=== PATIENT | male | born 1955 | race Caucasian/White ===

== ENCOUNTER 2018-08-13 06:43 | Inpatient (IN) ==
[2018-08-13] MEDS ORDERED: Acetaminophen 325 MG Tablet PO ONE (07:05)
--- NOTE | 2018-08-13 07:12 | ED ---
HPI General Chief Complaint: Altered Mental Status Stated Complaint: Change in mental status Time Seen by Provider: 08/13/18 07:04 Source: patient, EMS and RN notes reviewed Mode of arrival: EMS Limitations: physical limitation History of Present Illness HPI narrative: 62-year-old pedro was brought in by EMS from local shelter for altered mental status and confusion. [facility] staff noticed patient has altered mental status and confusion since this morning. No reported coughing congestion fever chills. Patient status post CVA with some aphasia reported. Patient denies any headache. Patient denies any neck pain. Patient denies any chest pain or shortness of breath. Patient denies abdominal pain. Patient denies any focal weakness or numbness to the extremity. Patient started post right BKA. MD complaint: Reports altered mental status and confusion Onset (ago): hour(s) Timing confirmed by: caregiver Severity: moderate Consistency of symptoms: constant Context: Reports unknown Associated symptoms: Reports denies other symptoms Related Data Home Medications Medication Instructions Recorded Confirmed aspirin [Aspir-81] 81 mg PO DAILY 08/13/18 08/13/18 meloxicam [Mobic] 15 mg PO DAILY 08/13/18 08/13/18 mirtazapine [Remeron] 7.5 mg PO DAILY 08/13/18 08/13/18 ondansetron HCl [Zofran] 4 mg PO Q8HR PRN 08/13/18 08/13/18 oxycodone 15 mg PO Q6HR PRN 08/13/18 08/13/18 polyethylene glycol 3350 [Miralax] 17 g PO DAILY 08/13/18 08/13/18 sennosides [Senokot] 2 tab PO BID PRN 08/13/18 08/13/18 Allergies Allergy/AdvReac Type Severity Reaction Status Date / Time No Known Allergies Allergy Verified 08/13/18 07:05 Review of Systems ROS: all other systems reviewed are negative PMFSH History History Provided By: Patient, Medical Record and Supervisor Graphite / EMT Medical History Medical History CVA (cerebral vascular accident) (Acute) Failure to thrive (Acute) History of left below knee amputation (Acute) Surgical History Surgical History Previous back surgery (Acute) Social History Social History Substance History: No History of Abuse Second Hand Smoke Exposure: No Smoking Status: Former smoker How Often Do You Have a Drink Containing Alcohol: Never Recent Travel in [facility] within the Last 8 Weeks: No Recent Out of Country Travel within the Last 8 Weeks: No Exam Narrative Exam Narrative: GENERAL: Well-nourished, well-developed patient. SKIN: Focused skin assessment warm/dry. HEAD: Normocephalic. EYES: No scleral icterus. No injection or drainage. NECK: Supple, trachea midline. No JVD or lymphadenopathy. CARDIOVASCULAR: Regular rate and rhythm without murmurs, gallops, or rubs. RESPIRATORY: Breath sounds equal bilaterally. No accessory muscle use. GASTROINTESTINAL: Abdomen soft, non-tender, nondistended. MUSCULOSKELETAL: No cyanosis, or edema. BACK: Nontender without obvious deformity. No CVA tenderness. Neurologic exam: Patient is awake and alert. Patient oriented to person and place. Patient moves all extremities well. No obvious focal neurologic deficit. Course Initial Documented Vital Signs Temperature 102.3 F H 08/13/18 06:53 Pulse Rate 150 H 08/13/18 06:53 Respiratory Rate 30 H 08/13/18 06:53 Blood Pressure 168/79 H 08/13/18 06:53 Pulse Oximetry 97 08/13/18 06:53 Last Documented Vital Signs Temperature 99.8 F H 08/13/18 08:03 Pulse Rate 150 H 08/13/18 08:03 Respiratory Rate 20 08/13/18 08:03 Blood Pressure 131/62 08/13/18 08:03 Pulse Oximetry 95 08/13/18 08:03 Medical Decision Making [facility] Narrative Medical decision making narrative: 62-year-old male with altered mental status, confusion, fever, tachycardia. Patient brought in by EMS from local shelter. Sepsis workup started. Normal saline solution 2 L IV bolus. Vancomycin 1 g IV. Zosyn 3.375 g IV. Medical Screen Exam Complete: Yes Emergency Medical Condition: Yes Differential Diagnosis Differential Diagnosis: Differential diagnosis including sepsis, pneumonia, UTI , dehydration, electrolyte imbalance, TIA, CVA. Lab Data Lab results reviewed: Yes I reviewed the patient's lab results. Result diagrams: 08/13/18 07:00 08/13/18 07:00 Lab Results 08/13/18 08/13/18 08/13/18 Range/Units 07:00 07:00 07:00 WBC 10.1 (4.0-11.0) th/mm3 RBC 4.35 L (4.50-5.90) mil/mm3 Hgb 12.9 L (13.0-17.0) gm/dL Hct 37.5 L (39.0-51.0) % MCV 86.0 (80.0-100.0) fL MCH 29.7 (27.0-34.0) pg MCHC 34.5 (32.0-36.0) % RDW 13.4 (11.6-17.2) % Plt Count 159 (150-450) th/mm3 MPV 8.1 (7.0-11.0) fL Neut % (Auto) 70.5 H (16.0-70.0) % Lymph % (Auto) 18.9 (9.0-44.0) % [place] % (Auto) 10.2 H (0.0-8.0) % Eos % (Auto) 0.3 (0.0-4.0) % Baso % (Auto) 0.1 (0.0-2.0) % Neut # (Auto) 7.1 (1.8-7.7) th/mm3 Lymph # (Auto) 1.9 (1.0-4.8) th/mm3 [place] # (Auto) 1.0 H (0.0-0.9) th/mm3 Eos # (Auto) 0.0 (0.0-0.4) th/mm3 Baso # (Auto) 0.0 (0.0-0.2) th/mm3 WBC Differential . Differential Comment Auto diff final PT 11.5 (9.8-11.6) sec INR 1.1 Ratio APTT 33.9 H (23.4-31.7) sec Sodium 133 L (136-145) meq/L Potassium 3.8 (3.5-5.1) meq/L Chloride 99 (98-107) meq/L Carbon Dioxide 27.4 (21.0-32.0) meq/L Anion Gap 7 (5-15) meq/L BUN 10 (7-18) mg/dL Creatinine 0.54 L (0.60-1.30) mg/dL Estimated GFR Greater than 89 (>89) mL/min Random Glucose 93 (74-106) mg/dL Lactic Acid (0.4-2.0) mmol/L Calcium 8.2 L (8.5-10.1) mg/dL Total Bilirubin 0.6 (0.2-1.0) mg/dL AST 28 (15-37) U/L ALT 25 (12-78) U/L Alkaline Phosphatase 67 (45-117) U/L Total Creatine Kinase 56 (39-308) U/L Total Protein 9.0 H (6.4-8.2) g/dL Albumin 3.4 (3.4-5.0) g/dL Urine Color (Yellw/Straw) Urine Clarity (Clear) Urine pH (5.0-8.5) Ur Specific [place] (1.002-1.035) Urine Protein (Neg-Trace) mg/dL Urine Glucose (UA) (Negative) mg/dL Urine Ketones (Negative) mg/dL Urine Occult Blood (Negative) Urine Nitrate (Negative) Urine Bilirubin (Negative) Urine Urobilinogen (Less than 2) mg/dL Ur Leukocyte Esterase (Negative) Urine RBC (0-3) /hpf Urine WBC (0-5) /hpf Urine Mucus (Occasional) /lpf Micro UA Comment Ur Microscopic Review Urine Culture Comments 08/13/18 08/13/18 Range/Units 07:00 07:24 WBC (4.0-11.0) th/mm3 RBC (4.50-5.90) mil/mm3 Hgb (13.0-17.0) gm/dL Hct (39.0-51.0) % MCV (80.0-100.0) fL MCH (27.0-34.0) pg MCHC (32.0-36.0) % RDW (11.6-17.2) % Plt Count (150-450) th/mm3 MPV (7.0-11.0) fL Neut % (Auto) (16.0-70.0) % Lymph % (Auto) (9.0-44.0) % [place] % (Auto) (0.0-8.0) % Eos % (Auto) (0.0-4.0) % Baso % (Auto) (0.0-2.0) % Neut # (Auto) (1.8-7.7) th/mm3 Lymph # (Auto) (1.0-4.8) th/mm3 [place] # (Auto) (0.0-0.9) th/mm3 Eos # (Auto) (0.0-0.4) th/mm3 Baso # (Auto) (0.0-0.2) th/mm3 WBC Differential Differential Comment PT (9.8-11.6) sec INR Ratio APTT (23.4-31.7) sec Sodium (136-145) meq/L Potassium (3.5-5.1) meq/L Chloride (98-107) meq/L Carbon Dioxide (21.0-32.0) meq/L Anion Gap (5-15) meq/L BUN (7-18) mg/dL Creatinine (0.60-1.30) mg/dL Estimated GFR (>89) mL/min Random Glucose (74-106) mg/dL Lactic Acid 1.2 (0.4-2.0) mmol/L Calcium (8.5-10.1) mg/dL Total Bilirubin (0.2-1.0) mg/dL AST (15-37) U/L ALT (12-78) U/L Alkaline Phosphatase (45-117) U/L Total Creatine Kinase (39-308) U/L Total Protein (6.4-8.2) g/dL Albumin (3.4-5.0) g/dL Urine Color Yellow (Yellw/Straw) Urine Clarity Clear (Clear) Urine pH 7.0 (5.0-8.5) Ur Specific [place] 1.011 (1.002-1.035) Urine Protein Negative (Neg-Trace) mg/dL Urine Glucose (UA) Negative (Negative) mg/dL Urine Ketones Negative (Negative) mg/dL Urine Occult Blood Small H (Negative) Urine Nitrate Negative (Negative) Urine Bilirubin Negative (Negative) Urine Urobilinogen 2.0 H (Less than 2) mg/dL Ur Leukocyte Esterase Negative (Negative) Urine RBC 3 (0-3) /hpf Urine WBC 2 (0-5) /hpf Urine Mucus Few H (Occasional) /lpf Micro UA Comment Culture not ind Ur Microscopic Review Not Reportable Urine Culture Comments Culture not ind Imaging Data Attestation: I personally reviewed and interpreted this imaging study as follows : Radiologist's impression: Chest X-Ray 08/13/18 07:05 CONCLUSION: Bibasilar densities greater left lower lobe could be atelectasis or infiltrates. Head CT 08/13/18 07:05 CONCLUSION: 1. Remote left parietal infarct. 2. No acute intracranial abnormality. . . Discharge Plan Discharge Disposition Patient Disposition: ED Admit(ED Internal Use Only) Discharge Details Diagnosis: Sepsis, Pneumonia Physicians Team ED Provider: Navin Barrera Rxs /Orders / Referrals /Forms Prescriptions: No Action sennosides [Senokot] 8.6 mg Tablet 2 tab PO BID PRN (Reason: Constipation) RF: 0 polyethylene glycol 3350 [Miralax] 17 gram Powder In Packet 17 g PO DAILY RF: 0 meloxicam [Mobic] 15 mg Tablet 15 mg PO DAILY RF: 0 ondansetron HCl [Zofran] 4 mg Tablet 4 mg PO Q8HR PRN (Reason: Nausea) RF: 0 aspirin [Aspir-81] 81 mg Tablet,Delayed Release (Dr/Ec) 81 mg PO DAILY RF: 0 oxycodone 15 mg Tablet 15 mg PO Q6HR PRN (Reason: Pain) RF: 0 mirtazapine [Remeron] 15 mg Tablet 7.5 mg PO DAILY RF: 0 Discharge Interventions Interventions: Vital Signs Last Done: 08/13/18 08:03 Status ED Status: With Doctor
[2018-08-13] MEDS: Sod Chloride 0.9% Inj 1,000 ML IV.SIG SCH ×2 (07:23→07:45)
[2018-08-13 07:26] LABS: Baso % (Auto) 0.1 % (0.0-2.0); Eos % (Auto) 0.3 % (0.0-4.0); Hematocrit 37.5 % (39.0-51.0); Hemoglobin 12.9 gm/dL (13.0-17.0); Lymph # (Auto) 1.9 th/mm3 (1.0-4.8); Lymph % (Auto) 18.9 % (9.0-44.0); Mean Corpuscular HGB Conc 34.5 % (32.0-36.0); Mean Corpuscular Hemoglobin 29.7 pg (27.0-34.0); Mean Platelet Volume 8.1 fL (7.0-11.0); Mono % (Auto) 10.2 % (0.0-8.0); Neut # (Auto) 7.1 th/mm3 (1.8-7.7); Neut % (Auto) 70.5 % (16.0-70.0); Platelet Count 159 th/mm3 (150-450); Red Blood Count 4.35 mil/mm3 (4.50-5.90); Red Cell Distribution Width 13.4 % (11.6-17.2); White Blood Count 10.1 th/mm3 (4.0-11.0)
--- NOTE | 2018-08-13 07:28 | XR ---
EXAM DATE: 08/13/2018 7:17 AM EST AGE/SEX: 62 years / Male INDICATIONS: Fever CLINICAL DATA: This is the patient's initial encounter. Patient reports that signs and symptoms have been present for 1 day and indicates a pain score of 0/10. MEDICAL/SURGICAL HISTORY: None. . Back surgery COMPARISON: No prior exams available for comparison. FINDINGS: A single AP view of the chest demonstrates bibasilar densities greater left lower lobe. Fusion rods s een posteriorly. Heart normal in size. The cardiomediastinal contours are unremarkable. Osseous stru ctures are intact. CONCLUSION: Bibasilar densities greater left lower lobe could be atelectasis or infiltrates. Electronically signed by: Evangelist Bartlett MD Board Certified Radiologist 08/13/2018 7:27 AM EST
[2018-08-13 07:36] LABS: Activated Partial Thrombo Time 33.9 sec (23.4-31.7); INR 1.1 Ratio; Prothrombin Time 11.5 sec (9.8-11.6)
[2018-08-13 07:47] LABS: Alanine Aminotransferase 25 U/L (12-78); Albumin 3.4 g/dL (3.4-5.0); Anion Gap 7 meq/L (5-15); Aspartate Aminotransferase 28 U/L (15-37); Blood Urea Nitrogen 10 mg/dL (7-18); Calcium 8.2 mg/dL (8.5-10.1); Carbon Dioxide 27.4 meq/L (21.0-32.0); Chloride 99 meq/L (98-107); Glomerular Filtration Rate Greater Than 89 mL/min (>89); Glucose,Random 93 mg/dL (74-106); Potassium 3.8 meq/L (3.5-5.1); Sodium 133 meq/L (136-145)
[2018-08-13 07:49] LABS: Alkaline Phosphatase 67 U/L (45-117); Creatine Kinase 56 U/L (39-308)
--- NOTE | 2018-08-13 07:57 | CT ---
EXAM DATE: 08/13/2018 7:52 AM EST AGE/SEX: 62 years / Male INDICATIONS: Altered Mental Status CLINICAL DATA: This is the patient's initial encounter. Patient reports that signs and symptoms have been present for 1 day and indicates a pain score of 0/10. MEDICAL/SURGICAL HISTORY: Cerebrovascular disease. . Left below knee amputation, Back surgery RADIATION DOSE: 64.63 CTDI (mGy) COMPARISON: No prior exams available for comparison. TECHNIQUE: CT of the head without contrast. Using automated exposure control and adjustment of the mA and/or kV according to patient size, radiation dose was kept as low as reasonably achievable to ob tain optimal diagnostic quality images. DICOM format image data is available electronically for revi ew and comparison. FINDINGS: Cerebrum: Area of encephalomalacia in the left parietal lobe most characteristic of old infarct. The ventricles are normal for age. No evidence of midline shift, mass lesion, hemorrhage or acute infar ction. No extraaxial fluid collections are seen. Posterior Fossa: The cerebellum and brainstem are intact. The 4th ventricle is midline. The cerebe llopontine angle is unremarkable. Extracranial: The visualized portion of the orbits is intact. Skull: The calvaria is intact. No evidence of skull fracture. CONCLUSION: 1. Remote left parietal infarct. 2. No acute intracranial abnormality. . . Electronically signed by: Evangelist Bartlett MD Board Certified Radiologist 08/13/2018 7:56 AM EST
[2018-08-13 08:05] LABS: Bilirubin,Urine Negative (Negative); Clarity,Urine Clear (Clear); Color,Urine Yellow (Yellw/Straw); Glucose,Urine (UA) Negative (Negative); Leukocyte Esterase,Urine Negative (Negative); Mucus,Urine Few /lpf (Occasional); Nitrite,Urine Negative (Negative); Specific Gravity,Urine 1.011 (1.002-1.035)
[2018-08-13] MEDS ORDERED: Vancomycin Inj 1,000 MG in Sodium Chlor 0.9% Inj 250 ML IV.SIG ONE (08:26)
[2018-08-13] MEDS ORDERED: Piperacil/Tazo 3.375 GM Premix 3.375 GM/50 ML PIGGYBACK IV.SIG ONE (08:26)
--- NOTE | 2018-08-13 09:00 | P.HPFP ---
History of Present Illness Primary Care Physician: Reinier Zelaya MD <ShandaAgustin Mahajan - 08/13/18 15:15> Chief Complaint: AMS, confusion <Ary Krause B - 08/13/18 08:59> History of Present Illness: 62-year-old male with history of CVA 1 year ago, with residual weakness of the right side and trouble word finding, and chronic back pain due to prior fall from height presents via EMS for reported altered mental status today per [facility]. Per LI, patient has been more confused in the past day. Patient has a history of trouble with word finding and is oriented only to self upon interview, resulting in limited history. When asked the year he stated it was 2015 and was unable to state the month, day a week, or that he is currently in the hospital in [place], [place], but also admits that he knows his answers "aren' t right" after giving them. Denies increased trouble finding words, or confusion. He states that he is living at "[facility]" assisting living facility and has been for the past 6 months. Patient states that "feels fine" right now while in the ED. He notes an 8-day history of productive cough of white, sometimes brown-tinged sputum, and intermittent fever and chills for the past 3-4 days. He also notes mild nausea but denies vomiting. He otherwise denies headache, nasal congestion, nasal discharge, sore throat, shortness of breath, trouble taking a deep breath, abdominal pain, diarrhea, dysuria or hematuria. Also admits to chronic constipation, last bowel movement 2 days ago, which is normal for him. He is unable to confirm the medications on his medication list except for oxycodone 15 mg, four times daily, which he is taking for chronic back pain after a fall from height, status post right lower extremity BKA and significant spinal surgery, with a surgical scar extending from lower cervical to lower lumbar spine. Past medical history: CVA 1 year ago, with residual weakness and trouble word finding. Chronic back pain. Surgical history: Cervical, thoracic, lumbar spine surgery. RLE BKA. Exploratory laparotomy. Social hx: Former smoker. Denies alcohol or other substance abuse. PCP: Recently changed, unsure of name Update 08/13/18 at 13:00 PM: Spoke to RNPenelope, at [facility]. Patient baseline normally alert and oriented x3, able to state his full name, the year and month, and that he is residing at [facility]. He has trouble with word finding and trouble saying what he means to following CVA 1 year ago, but he is normally able to communicate the correct words with effort. Per nursing staff, patient started acting abnormally a couple of days ago, but worsened this morning, apparently making whooping noises while watching the television for the past couple of days and unable to be reoriented. Started on Remeron on 08/09/18 for appetite stimulation, which is the only noted medication change noted. Nurse confirmed community code status of Full Code. <Jeffrey DelcidAry Patricia 08/13/18 13:16> - Diagnosis (1) Sepsis (2) Pneumonia (3) Altered mental status (4) Status post cerebrovascular accident (5) Chronic back pain greater than 3 months duration (6) Constipation (7) Nutrition, metabolism, and development symptoms (8) DVT prophylaxis <ZionAgustin ellis 08/13/18 15:15> (1) Sepsis (2) Pneumonia (3) Altered mental status (4) Status post cerebrovascular accident (5) Chronic back pain greater than 3 months duration (6) Constipation (7) Nutrition, metabolism, and development symptoms (8) DVT prophylaxis <Rekhaalexandra BhavinAry Gomez 08/13/18 13:04> Inpatient Certification: I certify that the inpatient services were ordered in accordance with Medicare regulations governing the order. This includes certification that hospital inpatient services are reasonable and necessary and in the case of services not specified as inpatient-only under 42 CFR 419.22(n), that they are appropriately provided as inpatient services in accordance to with the 2-midnight benchmark under 43 CFR 412.3(e) <ZionAgustin ellis 08/13/18 15:15> I certify that the inpatient services were ordered in accordance with Medicare regulations governing the order. This includes certification that hospital inpatient services are reasonable and necessary and in the case of services not specified as inpatient-only under 42 CFR 419.22(n), that they are appropriately provided as inpatient services in accordance to with the 2-midnight benchmark under 43 CFR 412.3(e) <Jeffrey DelcidAry Gomez 08/13/18 08:59> Review of Systems Constitutional: Reports chills, Reports fever(s), Reports weakness (chronic) < [address] 08/13/18 10:42> Eyes: Denies change in vision, Denies pain <[address] 08/13/18 10: 42> Ears, Nose, Mouth, and Throat: Denies difficulty swallowing, Denies headache(s) , Denies nasal congestion, Denies nasal discharge, Denies sinus pain, Denies sore throat <[address] 08/13/18 10:42> Cardiovascular: Denies chest pain, Denies radiating jaw, neck or arm pain < [address] 08/13/18 10:42> Respiratory: Reports cough, Denies coughing up blood, Denies pain on inspiration , Denies shortness of breath, Denies wheezing <[address] 08/13/18 10:42> Gastrointestinal: Reports constipation, Reports nausea, Denies difficulty swallowing, Denies loose stools, Denies vomiting <[address] 10:42> Musculoskeletal: Reports back pain (Chronic), Reports muscle weakness (Chronic due to prior CVA) <[address] 08/13/18 10:42> Neurologic: Reports confusion, Denies headache(s) <[address] 10:42> PMFSH - History History Provided By: Patient, Medical Record, Flaring Machine Operator / EMT <[place] [id number] [facility] 08/13/18 08:59> - Medical History Medical History: Medical History (Last Reviewed 08/13/18 @ 07:50 by Sintia Padron RN) CVA (cerebral vascular accident) Failure to thrive History of left below knee amputation <Agustin Land 08/13/18 15:15> Medical History (Last Reviewed 08/13/18 @ 07:50 by Sintia Padron RN) CVA (cerebral vascular accident) Failure to thrive History of left below knee amputation <[address] 08/13/18 08:59> - Surgical History Surgical History: Surgical History (Last Reviewed 08/13/18 @ 07:50 by Sintia Padron RN) Previous back surgery <Agustin Land 17/19 15:15> Surgical History (Last Reviewed 08/13/18 @ 07:50 by Sintia Padron RN) Previous back surgery <Ary Krause 08/13/18 08:59> - Tobacco History Second Hand Smoke Exposure: No <Ary Krause 08/13/18 08:59> Tobacco Use In Past 30 Days: No <Ary Krause 08/13/18 08:59> Smoking Status: Former smoker <Ary Krause 08/13/18 08:59> - Alcohol History How Often Do You Have a Drink Containing Alcohol: Never <Ary Krause 08/13/18 08:59> - Substance Use History Substance History: No History of Abuse <Ary Krause 08/13/18 08:59> - Travel History Recent Travel in the [facility] Within the Last 8 Weeks: No <Ary Krause 08:59> Recent Travel Out of the Country Within the Last 8 Weeks: No <Ary Krause 08/13/18 08:59> - Immunization History Tetanus Immunization: <5 Years <Ary Krause 08/13/18 08:59> Medications and Allergies Allergies Allergy/AdvReac Type Severity Reaction Status Date / Time No Known Allergies Allergy Verified 08/13/18 07:05 <Agustin Land Keyshawn 08/13/18 15:15> Home Medications Medication Instructions Recorded Confirmed Type aspirin [Aspir-81] 81 mg PO DAILY 08/13/18 08/13/18 History meloxicam [Mobic] 15 mg PO DAILY 08/13/18 08/13/18 History mirtazapine [Remeron] 7.5 mg PO DAILY 08/13/18 08/13/18 History ondansetron HCl [Zofran] 4 mg PO Q8HR PRN 08/13/18 08/13/18 History oxycodone 15 mg PO Q6HR PRN 08/13/18 08/13/18 History polyethylene glycol 3350 [Miralax] 17 g PO DAILY 08/13/18 08/13/18 History sennosides [Senokot] 2 tab PO BID PRN 08/13/18 08/13/18 History <Agustin Land K - 08/13/18 15:15> Active Medications: Active Medications Acetaminophen (Tylenol) 650 mg PO Q4H PRN PRN Reason: Temp > 100.4 Al Hydroxide/Mg Hydroxide (Milk Of Magnesia Liq) 30 ml PO Q12H PRN PRN Reason: Mild Constipation Aspirin (Ecotrin) 81 mg PO DAILY [facility] Last Admin: 08/13/18 13:16 Dose: 81 mg Bisacodyl (Dulcolax Supp) 10 mg RECTAL DAILY PRN PRN Reason: SEVERE CONSITIPATION Enoxaparin Sodium (Lovenox Inj) 40 mg SQ Q24H [facility] Sodium Chloride (Ns Inj) 1,000 mls @ 125 mls/hr IV.CONT .Q8H [facility] Last Admin: 08/13/18 09:23 Dose: 125 mls/hr Piperacillin/Tazobactam/Dextrose (Zosyn 4.5 Gm Premix) 4.5 gm in 100 mls @ 200 mls/hr IV.SIG Q6H [facility] Vancomycin HCl 1,250 mg/ (Sodium Chloride) 262.5 mls @ 250 mls/hr IV.SIG Q12H [facility] Lactulose (Lactulose Liq) 30 ml PO DAILY PRN PRN Reason: SEVERE CONSITIPATION Meloxicam (Mobic) 15 mg PO DAILY [facility] Last Admin: 08/13/18 13:16 Dose: 15 mg Mirtazapine (Remeron) 7.5 mg PO Q24HR [facility] Miscellaneous Information ([facility] Ordered Lab Info) 0 each OTHER ONCE ONE Stop: 08/15/18 05:46 Ondansetron HCl (Zofran Inj) 4 mg IV.PUSH Q6H PRN PRN Reason: NAUSEA OR VOMITING Oseltamivir Phosphate (Tamiflu) 75 mg PO BID [facility] Oxycodone HCl (Roxicodone) 15 mg PO Q6H PRN PRN Reason: PAIN SCALE 1 TO 10 Pharmacy Profile Note (Vancomycin Consult Pharmacy) 1 each OTHER UNSCH PRN PRN Reason: Pharmacy to dose Polyethylene Glycol (Miralax) 17 gm PO DAILY [facility] Last Admin: 08/13/18 13:16 Dose: 17 gm Senna/Docusate Sodium (Rosa Isela-Colace) 1 tab PO BID [facility] Sennosides (Senokot) 17.2 mg PO Q12H PRN PRN Reason: Moderate Constipation Sodium Chloride (Ns Flush) 2 ml IV.FLUSH BID [facility] Sodium Chloride (Ns Flush) 2 ml IV.FLUSH PRN PRN PRN Reason: FLUSH AFTER USING IV ACCESS <Agustin Land Keyshawn - 08/13/18 15:15> Active Medications Vancomycin HCl 1,000 mg/ (Sodium Chloride) 250 mls @ 250 mls/hr IV.SIG ONCE ONE Stop: 08/13/18 09:25 Sodium Chloride (Ns Inj) 1,000 mls @ 125 mls/hr IV.CONT .Q8H [facility] <Ary Krause B - 08/13/18 08:59> Exam Vital signs: Vital Signs 08/13/18 06:53 08/13/18 08:03 08/13/18 08:46 Temperature 102.3 F H 99.8 F H Pulse Rate 150 H 150 H 95 H Respiratory Rate 30 H 20 20 Blood Pressure 168/79 H 131/62 101/50 L Pulse Oximetry 97 95 96 08/13/18 09:46 08/13/18 12:25 Temperature 97.8 F Pulse Rate 84 67 Respiratory Rate 20 18 Blood Pressure 98/53 L 108/55 L Pulse Oximetry 96 Intake & Output 08/12/18 08/13/18 08/13/18 18:59 06:59 18:59 Intake Total 2290 / 2290 Output Total 600 / 600 Balance 1690 / 1690 Weight 58.967 kg Intake: IV 2049 / 2049 Zosyn 3.375 GM Premix 3.375 gm 50 / 50 In 50 ml @ 100 mls/hr IV.SIG ONCE ONE Rx#:[id number] NS Inj 1,000 ML @ 2000 mls/hr 1999 IV.SIG Q30M [facility] Rx#:[id number] Oral 240 / 240 Output: Urine 600 / 600 <Agustin Land - 08/13/18 15:15> Vital Signs 08/13/18 06:53 08/13/18 08:03 08/13/18 08:46 Temperature 102.3 F H 99.8 F H Pulse Rate 150 H 150 H 95 H Respiratory Rate 30 H 20 20 Blood Pressure 168/79 H 131/62 101/50 L Pulse Oximetry 97 95 96 Intake & Output 08/12/18 08/13/18 08/13/18 18:59 06:59 18:59 Intake Total 2049 Balance 2049 Weight 58.967 kg Intake: IV 2049 Zosyn 3.375 GM Premix 3.375 gm 50 / 50 In 50 ml @ 100 mls/hr IV.SIG ONCE ONE Rx#:[id number] NS Inj 1,000 ML @ 2000 mls/hr 1999 IV.SIG Q30M KEM Rx#:[id number] <Ary Krause Patricia - 08/13/18 08:59> Narrative: GENERAL: 62-year-old thin frail male sitting up comfortably in bed. In no acute distress. SKIN: Warm and dry. HEAD: Atraumatic. Normocephalic. EYES: EMOI. PERRLA. No scleral icterus. No injection or drainage. ENT: No nasal bleeding or discharge. Mucous membranes pink and moist. Airway patent. NECK: No lymphadenopathy. Trachea midline. CARDIOVASCULAR: Regular rate and rhythm, except for mild tachycardia. No murmur. PT and DP pulses 2/4 on left lower extremity. RESPIRATORY: No accessory muscle use. Decreased breath sounds diffusely, coarse crackles worse on right lower lung field compared to left lower lung duarte. GASTROINTESTINAL: Bowel sounds in all 4 quadrants. Abdomen soft, non-tender, nondistended. Hepatic and splenic margins not palpable. Well-healed surgical scar consistent with exploratory laparotomy down midline of abdomen. MUSCULOSKELETAL: Extremities without clubbing, cyanosis, or edema. Well-healed RLE BKA, signs of infection. No calf tenderness on the left. Well-healed surgical scar extending from T7 down to L5 on back along the midline. NEUROLOGICAL: Awake and alert. Oriented to self. No obvious cranial nerve deficits. Moving all extremities spontaneously. 4/5 muscle strength in the arms and legs. Trouble with word finding. Follows commands. PSYCHIATRIC: Appropriate mood and affect. <Ary Krause Patricia - 08/13/18 10:42> Results - Labs Result diagrams: 08/13/18 07:00 08/13/18 07:00 <Agustin Land - 08/13/18 15:15> Abnormal lab results 08/13/18 08/13/18 08/13/18 Range/Units 07:00 07:00 07:00 RBC 4.35 L (4.50-5.90) mil/mm3 Hgb 12.9 L (13.0-17.0) gm/dL Hct 37.5 L (39.0-51.0) % Neut % (Auto) 70.5 H (16.0-70.0) % [place] % (Auto) 10.2 H (0.0-8.0) % [place] # (Auto) 1.0 H (0.0-0.9) th/mm3 APTT 33.9 H (23.4-31.7) sec Sodium 133 L (136-145) meq/L Creatinine 0.54 L (0.60-1.30) mg/dL Calcium 8.2 L (8.5-10.1) mg/dL Total Protein 9.0 H (6.4-8.2) g/dL Urine Occult Blood (Negative) Urine Urobilinogen (Less than 2) mg/dL Urine Mucus (Occasional) /lpf 08/13/18 Range/Units 07:24 RBC (4.50-5.90) mil/mm3 Hgb (13.0-17.0) gm/dL Hct (39.0-51.0) % Neut % (Auto) (16.0-70.0) % [place] % (Auto) (0.0-8.0) % [place] # (Auto) (0.0-0.9) th/mm3 APTT (23.4-31.7) sec Sodium (136-145) meq/L Creatinine (0.60-1.30) mg/dL Calcium (8.5-10.1) mg/dL Total Protein (6.4-8.2) g/dL Urine Occult Blood Small H (Negative) Urine Urobilinogen 2.0 H (Less than 2) mg/dL Urine Mucus Few H (Occasional) /lpf Short CBC 08/13/18 Range/Units 07:00 WBC 10.1 (4.0-11.0) th/mm3 Hgb 12.9 L (13.0-17.0) gm/dL Hct 37.5 L (39.0-51.0) % Plt Count 159 (150-450) th/mm3 BMP 08/13/18 07:00 Sodium 133 L Potassium 3.8 Chloride 99 Carbon Dioxide 27.4 BUN 10 Creatinine 0.54 L Calcium 8.2 L Cardiac Enzymes 08/13/18 Range/Units 07:00 Total Creatine Kinase 56 (39-308) U/L Liver Function 08/13/18 Range/Units 07:00 Total Bilirubin 0.6 (0.2-1.0) mg/dL AST 28 (15-37) U/L ALT 25 (12-78) U/L Alkaline Phosphatase 67 (45-117) U/L Albumin 3.4 (3.4-5.0) g/dL Urine 08/13/18 Range/Units 07:24 Urine Color Yellow (Yellw/Straw) Urine Clarity Clear (Clear) Urine pH 7.0 (5.0-8.5) Ur Specific [place] 1.011 (1.002-1.035) Urine Protein Negative (Neg-Trace) mg/dL Urine Glucose (UA) Negative (Negative) mg/dL <Agustin Land - 08/13/18 15:15> Abnormal lab results 08/13/18 08/13/18 08/13/18 Range/Units 07:00 07:00 07:00 RBC 4.35 L (4.50-5.90) mil/mm3 Hgb 12.9 L (13.0-17.0) gm/dL Hct 37.5 L (39.0-51.0) % Neut % (Auto) 70.5 H (16.0-70.0) % [place] % (Auto) 10.2 H (0.0-8.0) % [place] # (Auto) 1.0 H (0.0-0.9) th/mm3 APTT 33.9 H (23.4-31.7) sec Sodium 133 L (136-145) meq/L Creatinine 0.54 L (0.60-1.30) mg/dL Calcium 8.2 L (8.5-10.1) mg/dL Total Protein 9.0 H (6.4-8.2) g/dL Urine Occult Blood (Negative) Urine Urobilinogen (Less than 2) mg/dL Urine Mucus (Occasional) /lpf 08/13/18 Range/Units 07:24 RBC (4.50-5.90) mil/mm3 Hgb (13.0-17.0) gm/dL Hct (39.0-51.0) % Neut % (Auto) (16.0-70.0) % [place] % (Auto) (0.0-8.0) % [place] # (Auto) (0.0-0.9) th/mm3 APTT (23.4-31.7) sec Sodium (136-145) meq/L Creatinine (0.60-1.30) mg/dL Calcium (8.5-10.1) mg/dL Total Protein (6.4-8.2) g/dL Urine Occult Blood Small H (Negative) Urine Urobilinogen 2.0 H (Less than 2) mg/dL Urine Mucus Few H (Occasional) /lpf Short CBC 08/13/18 Range/Units 07:00 WBC 10.1 (4.0-11.0) th/mm3 Hgb 12.9 L (13.0-17.0) gm/dL Hct 37.5 L (39.0-51.0) % Plt Count 159 (150-450) th/mm3 BMP 08/13/18 07:00 Sodium 133 L Potassium 3.8 Chloride 99 Carbon Dioxide 27.4 BUN 10 Creatinine 0.54 L Calcium 8.2 L Cardiac Enzymes 08/13/18 Range/Units 07:00 Total Creatine Kinase 56 (39-308) U/L Liver Function 08/13/18 Range/Units 07:00 Total Bilirubin 0.6 (0.2-1.0) mg/dL AST 28 (15-37) U/L ALT 25 (12-78) U/L Alkaline Phosphatase 67 (45-117) U/L Albumin 3.4 (3.4-5.0) g/dL Urine 08/13/18 Range/Units 07:24 Urine Color Yellow (Yellw/Straw) Urine Clarity Clear (Clear) Urine pH 7.0 (5.0-8.5) Ur Specific [place] 1.011 (1.002-1.035) Urine Protein Negative (Neg-Trace) mg/dL Urine Glucose (UA) Negative (Negative) mg/dL <Ary Krause - 08/13/18 08:59> - Imaging Impressions Chest X-Ray 08/13/18 07:05 CONCLUSION: Bibasilar densities greater left lower lobe could be atelectasis or infiltrates. Head CT 08/13/18 07:05 CONCLUSION: 1. Remote left parietal infarct. 2. No acute intracranial abnormality. . . <Agustin Land - 08/13/18 15:15> Impressions Chest X-Ray 08/13/18 07:05 CONCLUSION: Bibasilar densities greater left lower lobe could be atelectasis or infiltrates. Head CT 08/13/18 07:05 CONCLUSION: 1. Remote left parietal infarct. 2. No acute intracranial abnormality. . . <Ary Krause - 08/13/18 08:59> Caprini VTE Risk Assessment Caprini VTE Risk Assessment: Moderate/High Risk (score >= 2) <Ary Krause - 08/13/18 10:42> Caprini Risk Assessment Model: Point Value = 1 Point Value = 2 Point Value = 3 Point Value = 5 Age 41-60 Minor surgery BMI > 25 kg/m2 Swollen legs Varicose veins or History of unexplained or recurrent spontaneous Oral contraceptives or hormone replacement Sepsis (< 1 month) Serious lung disease, including pneumonia (< 1 month) Abnormal pulmonary function Acute myocardial infarction Congestive heart failure (< 1 month) History of inflammatory bowel disease Medical patient at bed rest Age 61-74 Arthroscopic surgery Major open surgery (> 45 min) Laparoscopic surgery (> 45 min) Malignancy Confined to bed (> 72 hours) Immobilizing plaster cast Central venous access Age >= 75 History of VTE Family history of VTE Factor V Leiden Prothrombin [id number] Lupus anticoagulant Anticardiolipin antibodies Elevated serum homocysteine Heparin-induced thrombocytopenia Other congenital or acquired thrombophilia Stroke (< 1 month) Elective arthroplasty Hip, pelvis, or leg fracture Acute spinal cord injury (< 1 month) <Agustin Land 08/13/18 15:15> Point Value = 1 Point Value = 2 Point Value = 3 Point Value = 5 Age 41-60 Minor surgery BMI > 25 kg/m2 Swollen legs Varicose veins or History of unexplained or recurrent spontaneous Oral contraceptives or hormone replacement Sepsis (< 1 month) Serious lung disease, including pneumonia (< 1 month) Abnormal pulmonary function Acute myocardial infarction Congestive heart failure (< 1 month) History of inflammatory bowel disease Medical patient at bed rest Age 61-74 Arthroscopic surgery Major open surgery (> 45 min) Laparoscopic surgery (> 45 min) Malignancy Confined to bed (> 72 hours) Immobilizing plaster cast Central venous access Age >= 75 History of VTE Family history of VTE Factor V Leiden Prothrombin [id number] Lupus anticoagulant Anticardiolipin antibodies Elevated serum homocysteine Heparin-induced thrombocytopenia Other congenital or acquired thrombophilia Stroke (< 1 month) Elective arthroplasty Hip, pelvis, or leg fracture Acute spinal cord injury (< 1 month) <Ary Krause B - 08/13/18 10:42> Prophylaxis Regimen: Total Risk Factor Score Risk Level Prophylaxis Regimen 0-1 Low Early ambulation 2 Moderate Order ONE of the following: *Sequential Compression Device (SCD) *Heparin 5000 units SQ BID 3-4 Higher Order ONE of the following medications: *Heparin 5000 units SQ TID *Enoxaparin/Lovenox 40 mg SQ daily (WT < 150 kg, CrCl > 30 mL/min) *Enoxaparin/Lovenox 30 mg SQ daily (WT < 150 kg, CrCl > 10-29 mL/min) *Enoxaparin/Lovenox 30 mg SQ BID (WT < 150 kg, CrCl > 30 mL/min) AND/OR *Sequential Compression Device (SCD) 5 or more Highest Order ONE of the following medications: *Heparin 5000 units SQ TID (Preferred with Epidurals) *Enoxaparin/Lovenox 40 mg SQ daily (WT < 150 kg, CrCl > 30 mL/min) *Enoxaparin/Lovenox 30 mg SQ daily (WT < 150 kg, CrCl > 10-29 mL/min) *Enoxaparin/Lovenox 30 mg SQ BID (WT < 150 kg, CrCl > 30 mL/min) AND *Sequential Compression Device (SCD) <Agustin Land - 08/13/18 15:15> Total Risk Factor Score Risk Level Prophylaxis Regimen 0-1 Low Early ambulation 2 Moderate Order ONE of the following: *Sequential Compression Device (SCD) *Heparin 5000 units SQ BID 3-4 Higher Order ONE of the following medications: *Heparin 5000 units SQ TID *Enoxaparin/Lovenox 40 mg SQ daily (WT < 150 kg, CrCl > 30 mL/min) *Enoxaparin/Lovenox 30 mg SQ daily (WT < 150 kg, CrCl > 10-29 mL/min) *Enoxaparin/Lovenox 30 mg SQ BID (WT < 150 kg, CrCl > 30 mL/min) AND/OR *Sequential Compression Device (SCD) 5 or more Highest Order ONE of the following medications: *Heparin 5000 units SQ TID (Preferred with Epidurals) *Enoxaparin/Lovenox 40 mg SQ daily (WT < 150 kg, CrCl > 30 mL/min) *Enoxaparin/Lovenox 30 mg SQ daily (WT < 150 kg, CrCl > 10-29 mL/min) *Enoxaparin/Lovenox 30 mg SQ BID (WT < 150 kg, CrCl > 30 mL/min) AND *Sequential Compression Device (SCD) <Ary Krause Patricia - 08/13/18 10:42> Assessment and Plan - Assessment (1) Sepsis Code(s): A41.9 - Sepsis, unspecified organism Status: Acute (2) Pneumonia Code(s): J18.9 - Pneumonia, unspecified organism Status: Acute (3) Altered mental status Code(s): R41.82 - Altered mental status, unspecified Status: Acute (4) Status post cerebrovascular accident Code(s): Z86.73 - Personal history of transient ischemic attack (TIA), and cerebral infarction without residual deficits Status: Chronic (5) Chronic back pain greater than 3 months duration Code(s): M54.9 - Dorsalgia, unspecified; G89.29 - Other chronic pain Status: Chronic (6) Constipation Code(s): K59.00 - Constipation, unspecified Status: Chronic (7) Nutrition, metabolism, and development symptoms Code(s): R63.8 - Other symptoms and signs concerning food and fluid intake Status: Acute (8) DVT prophylaxis Status: Acute <Agustin Land - 08/13/18 15:15> (1) Sepsis Code(s): A41.9 - Sepsis, unspecified organism Status: Acute (2) Pneumonia Code(s): J18.9 - Pneumonia, unspecified organism Status: Acute (3) Altered mental status Code(s): R41.82 - Altered mental status, unspecified Status: Acute (4) Status post cerebrovascular accident Code(s): Z86.73 - Personal history of transient ischemic attack (TIA), and cerebral infarction without residual deficits Status: Chronic (5) Chronic back pain greater than 3 months duration Code(s): M54.9 - Dorsalgia, unspecified; G89.29 - Other chronic pain Status: Chronic (6) Constipation Code(s): K59.00 - Constipation, unspecified Status: Chronic (7) Nutrition, metabolism, and development symptoms Code(s): R63.8 - Other symptoms and signs concerning food and fluid intake Status: Acute (8) DVT prophylaxis Status: Acute <Ary Krause - 08/13/18 13:04> - Assessment and Plan Sepsis likely secondary to pneumonia Met sepsis criteria for tachycardia of up to 150s and fever up to 102.3 F, resolved with 1L NS and Tylenol. -Chest x-ray showed Bibasilar densities greater left lower lobe could be atelectasis or infiltrates. -EKG in ED showed sinus tachycardia of 150. Ordered repeat EKG. -CBC WNL -CMP WNL -Urinalysis: Small occult blood, no signs of infection. No culture indicated -Blood cultures pending -Sputum cultures ordered -Urine Legionella ag and pneumococcal ag ordered -CBC and CMP ordered for tomorrow AM -Given Zosyn 3.375 g IV and Vancomycin 1g IV in the ED -Continue Zosyn 3.375g IV q8h and Vancomycin 1.25 g IV q12h for HAP -Given 1L NS in the ED -Incentive spirometer, acapella/PEP/chest physiotherapy ordered -CM consulted for discharge planning Altered mental status Oriented to self only today. Normally A&Ox3 at baseline per nursing staff at [facility]. Trouble with word finding following CVA. -CT head showed remote left parietal infarct c/w prior CVA, negative for acute abnormalities -Discussed code status with patient including intubation, medication and chest compressions, which patient declines. Patient states that he is a community DNR. Due to confused mental state, changed from baseline, discussed code status with nursing staff at [facility] , who states he is Full Code. Given information for POA, Audrey Reeder, the patient's sister . S/p CVA 1 year ago, with residual trouble with word finding and weakness of right arm -Continue home ASA 81 mg daily -PT/OT ordered due to deconditioned state -Passed bedside swallow challenge Hx of chronic back pain and BKA s/p fall -PDMP reviewed. Receiving equivalent of Oxycodone 15mg PO q6 hr. Currently receiving in 3-[address] Zelaya. Last dose received last night. -Continue home dose of Oxycodone 15mg PO q6hr Hx of constipation -Continue home Miralax daily FEN -Fluids: Patient tolerating PO liquids, will hold off on IVF at this time -Electrolytes: No significant electrolyte abnormalities, will continue to monitor and replete as needed. -Diet: Regular diet DVT prophylaxis -SCD and compression hose on LLE dw Dr. Land and Dr. Egan <Ary Krause - 08/13/18 13:16> - Attending Attestation The exam, history, and the medical decision-making described in the above note were completed with the assistance of the resident physician. I reviewed and agree with the findings presented. I attest that I had a [id number] encounter with the patient on the same day, and personally performed and documented my assessment and findings in the medical record. See my PN from today reviewed and agree with above. - Genoveva Land <Agustin Land - 08/13/18 15:15> <Ary Krause - Last Filed: 08/13/18 13:04> (1) Sepsis Qualifiers: Sepsis type: sepsis due to unspecified organism Qualified Code(s): A41.9 - Sepsis, unspecified organism (2) Pneumonia Qualifiers: Pneumonia type: due to unspecified organism Laterality: bilateral Lung location: lower lobe of lung Qualified Code(s): J18.1 - Lobar pneumonia, unspecified organism <Agustin Land - Last Filed: 08/13/18 15:15> (1) Sepsis Qualifiers: Sepsis type: sepsis due to unspecified organism Qualified Code(s): A41.9 - Sepsis, unspecified organism (2) Pneumonia Qualifiers: Pneumonia type: due to unspecified organism Laterality: bilateral Lung location: lower lobe of lung Qualified Code(s): J18.1 - Lobar pneumonia, unspecified organism <Ary Krause Patricia - Last Filed: 08/13/18 13:04> (1) Sepsis Qualifiers: Sepsis type: sepsis due to unspecified organism Qualified Code(s): A41.9 - Sepsis, unspecified organism (2) Pneumonia Qualifiers: Pneumonia type: due to unspecified organism Laterality: bilateral Lung location: lower lobe of lung Qualified Code(s): J18.1 - Lobar pneumonia, unspecified organism <Agustin Land - Last Filed: 08/13/18 15:15> (1) Sepsis Qualifiers: Sepsis type: sepsis due to unspecified organism Qualified Code(s): A41.9 - Sepsis, unspecified organism (2) Pneumonia Qualifiers: Pneumonia type: due to unspecified organism Laterality: bilateral Lung location: lower lobe of lung Qualified Code(s): J18.1 - Lobar pneumonia, unspecified organism
[2018-08-13] MEDS ORDERED: Acetaminophen 325 MG Tablet PO PRN (09:21)
[2018-08-13] MEDS ORDERED: Bisacodyl 10 MG Supp RECTAL PRN (09:21)
[2018-08-13] MEDS: Sod Chloride 0.9% Inj 1,000 ML IV.CONT SCH ×2 (09:23→16:52)
[2018-08-13] MEDS ORDERED: Vancomycin Consult Pharmacy OTHER PRN (09:58)
--- NOTE | 2018-08-13 12:58 | P.PNFP ---
Subjective Interval history: Agree with resident histories as documented by Dr Murphy on 08/13 in H&P. Reviewed histories personally and discussed with her. Will add, 62 yo M from [facility] there for assistance with ADLs after recent stroke. He has had some failure to thrive. He was admitted for increasing confusion and cough. He responded very well to initial IV hydration and initiation of antibiotics and after admission appears to be at least near mental status baseline. Results - Labs Result diagrams: 08/13/18 07:00 08/13/18 07:00 Abnormal lab results 08/13/18 08/13/18 08/13/18 Range/Units 07:00 07:00 07:00 RBC 4.35 L (4.50-5.90) mil/mm3 Hgb 12.9 L (13.0-17.0) gm/dL Hct 37.5 L (39.0-51.0) % Neut % (Auto) 70.5 H (16.0-70.0) % Frontier % (Auto) 10.2 H (0.0-8.0) % Frontier # (Auto) 1.0 H (0.0-0.9) th/mm3 APTT 33.9 H (23.4-31.7) sec Sodium 133 L (136-145) meq/L Creatinine 0.54 L (0.60-1.30) mg/dL Calcium 8.2 L (8.5-10.1) mg/dL Total Protein 9.0 H (6.4-8.2) g/dL Urine Occult Blood (Negative) Urine Urobilinogen (Less than 2) mg/dL Urine Mucus (Occasional) /lpf 08/13/18 Range/Units 07:24 RBC (4.50-5.90) mil/mm3 Hgb (13.0-17.0) gm/dL Hct (39.0-51.0) % Neut % (Auto) (16.0-70.0) % Frontier % (Auto) (0.0-8.0) % Frontier # (Auto) (0.0-0.9) th/mm3 APTT (23.4-31.7) sec Sodium (136-145) meq/L Creatinine (0.60-1.30) mg/dL Calcium (8.5-10.1) mg/dL Total Protein (6.4-8.2) g/dL Urine Occult Blood Small H (Negative) Urine Urobilinogen 2.0 H (Less than 2) mg/dL Urine Mucus Few H (Occasional) /lpf Short CBC 08/13/18 Range/Units 07:00 WBC 10.1 (4.0-11.0) th/mm3 Hgb 12.9 L (13.0-17.0) gm/dL Hct 37.5 L (39.0-51.0) % Plt Count 159 (150-450) th/mm3 BMP 08/13/18 07:00 Sodium 133 L Potassium 3.8 Chloride 99 Carbon Dioxide 27.4 BUN 10 Creatinine 0.54 L Calcium 8.2 L Cardiac Enzymes 08/13/18 Range/Units 07:00 Total Creatine Kinase 56 (39-308) U/L Liver Function 08/13/18 Range/Units 07:00 Total Bilirubin 0.6 (0.2-1.0) mg/dL AST 28 (15-37) U/L ALT 25 (12-78) U/L Alkaline Phosphatase 67 (45-117) U/L Albumin 3.4 (3.4-5.0) g/dL Urine 08/13/18 Range/Units 07:24 Urine Color Yellow (Yellw/Straw) Urine Clarity Clear (Clear) Urine pH 7.0 (5.0-8.5) Ur Specific Benedict 1.011 (1.002-1.035) Urine Protein Negative (Neg-Trace) mg/dL Urine Glucose (UA) Negative (Negative) mg/dL - Imaging Impressions Chest X-Ray 08/13/18 07:05 CONCLUSION: Bibasilar densities greater left lower lobe could be atelectasis or infiltrates. Head CT 08/13/18 07:05 CONCLUSION: 1. Remote left parietal infarct. 2. No acute intracranial abnormality. . . Physical Exam Vital signs: Vital Signs 08/13/18 06:53 08/13/18 08:03 08/13/18 08:46 Temperature 102.3 F H 99.8 F H Pulse Rate 150 H 150 H 95 H Respiratory Rate 30 H 20 20 Blood Pressure 168/79 H 131/62 101/50 L Pulse Oximetry 97 95 96 08/13/18 09:46 08/13/18 12:25 Temperature 97.8 F Pulse Rate 84 67 Respiratory Rate 20 18 Blood Pressure 98/53 L 108/55 L Pulse Oximetry 96 Intake & Output 08/12/18 08/13/18 08/13/18 18:59 06:59 18:59 Intake Total 2049 Balance 2049 Weight 58.967 kg Intake: IV 2049 Zosyn 3.375 GM Premix 3.375 gm 50 / 50 In 50 ml @ 100 mls/hr IV.SIG ONCE ONE Rx#:[id number] NS Inj 1,000 ML @ 2000 mls/hr 1999 IV.SIG Q30M KEM Rx#:[id number] - Constitutional no acute distress, thin, disheveled - Routine HEENT Exam Head: Present: normocephalic, atraumatic Eye: Present: EOMI, PERRL ENT: Present: mucous membranes moist, oropharynx clear - Routine Neck Exam Present: supple, full ROM - Routine Respiratory Exam Present: rhonchi. Absent: accessory muscle use, wheezes, diminished air movement Comments: R>L - Routine Cardiovascular Exam Present: RRR, S1, S2. Absent: murmur, JVD - Routine Abdominal Exam Present: soft, normoactive bowel sounds, surgical scars. Absent: tenderness, distended, rebound, guarding - Routine Extremities Exam Absent: cyanosis, clubbing, edema Comments: R BKA - Routine Skin Exam Present: intact, cyanosis, erythema Comments: mild sacral erythema, likely stage I pressure ulcer large vertical midline scar of back - Routine Neurological Exam Present: alert. Absent: pronator drift mild facial droop and mild decrease in strength unilaterally - Routine Psychiatric Exam Present: normal affect. Absent: good insight, good judgment Assessment and Plan - Assessment (1) Sepsis Code(s): A41.9 - Sepsis, unspecified organism Status: Acute (2) Pneumonia Code(s): J18.9 - Pneumonia, unspecified organism Status: Acute (3) Altered mental status Code(s): R41.82 - Altered mental status, unspecified Status: Acute (4) Status post cerebrovascular accident Code(s): Z86.73 - Personal history of transient ischemic attack (TIA), and cerebral infarction without residual deficits Status: Chronic (5) Chronic back pain greater than 3 months duration Code(s): M54.9 - Dorsalgia, unspecified; G89.29 - Other chronic pain Status: Chronic (6) Nutrition, metabolism, and development symptoms Code(s): R63.8 - Other symptoms and signs concerning food and fluid intake Status: Acute (7) DVT prophylaxis Status: Acute - Assessment and Plan Sepsis likely secondary to pneumonia Met sepsis criteria for tachycardia of up to 155 and fever up to 102.3 F, resolved with 1L NS and Tylenol. -Chest x-ray showed Bibasilar densities greater left lower lobe could be atelectasis or infiltrates. -CBC WNL -CMP WNL -Urinalysis: Small occult blood, no signs of infection. No culture indicated -Blood cultures pending -Sputum cultures ordered -Urine Legionella ag and pneumococcal ag ordered -CBC and CMP ordered for tomorrow AM -Given Zosyn 3.375 g IV and Vancomycin 1g IV in the ED -Continue Zosyn 3.375g IV q8h and Vancomycin 885mg (15 mg/kg) q12h for HAP -Given 1L NS in the ED -Incentive spirometer, acapella/PEP/chest physiotherapy ordered Altered mental status Oriented to self only. Trouble with word finding following CVA. -Will contact Nursing facility to better determine change from baseline -CT head showed remote left parietal infarct c/w prior CVA, negative for acute abnormalities S/p CVA 1 year ago, with residual trouble with word finding and weakness of right arm -PT/OT ordered due to deconditioned state -Passed bedside swallow challenge Hx of chronic back pain and BKA s/p fall -PDMP reviewed. Receiving equivalent of Oxycodone 15mg PO q6 hr. Currently receiving in 3-[address] Zelaya. Last dose received last night. -Continue home dose of Oxycodone 15mg PO q6hr FEN -Fluids: Patient tolerating PO liquids, will hold off on IVF at this time -Electrolytes: No significant electrolyte abnormalities, will continue to monitor and replete as needed. -Diet: Regular diet DVT prophylaxis -SCD and compression hose on LLE The exam, history, and the medical decision-making described in the above note were completed with the assistance of the resident physician. I reviewed and agree with the findings presented. I attest that I had a [id number] encounter with the patient on the same day, and personally performed and documented my assessment and findings in the medical record. - Genoveva Land 1. sepsis 2/2 fpc acquired pneumonia - cont empiric IV Zosyn + Vanc. - IVF as needed now, appears volume resuscitated - expect discharge after 48hrs IV abx - Need speech eval for aspiration 2. Encephalopathy likely 2/2 above, acute on chronic, already resolving, continue current care, home meds. 3. Hyponatremia mild, will recheck tomorrow after fluid resusication, suspect was hypovolemic initially. may have some poor po intake as well. 4. Anemia normocyctic, mild, chronic. monitor 5. Tachycardia resolved with IVF- intial EKG more likely sinus tach but cannot r/o aflutter with 2:1 AV block, will recheck EKG 6. CVA home asa 7. Chronic pain continue home oxycodone 8. constipation home meds ,monitor dvt ppx: lovenox dispo: anticipate 24-48 hr hospital stay if continues to improve this way (1) Sepsis Qualifiers: Sepsis type: sepsis due to unspecified organism Qualified Code(s): A41.9 - Sepsis, unspecified organism (2) Pneumonia Qualifiers: Pneumonia type: due to unspecified organism Laterality: bilateral Lung location: lower lobe of lung Qualified Code(s): J18.1 - Lobar pneumonia, unspecified organism
[2018-08-13] MEDS: Polyethylene Glycol 3350 17 GM Packet PO SCH (13:16)
[2018-08-13] MEDS: Meloxicam 15 MG Tablet PO SCH (13:16)
[2018-08-13] MEDS: Enoxaparin Inj 40 MG/0.4 ML Syringe SQ SCH (15:32)
[2018-08-13] MEDS: Piperacil/Tazo 4.5 GM Premix 4.5 GM/100 ML BAG IV.SIG SCH ×2 (16:13→22:04)
[2018-08-13] MEDS: Vancomycin Inj 1,250 MG in Sodium Chlor 0.9% Inj 250 ML IV.SIG SCH (18:36)
[2018-08-13] MEDS ORDERED: VANCOMYCIN IV.SIG SCH (20:30)
[2018-08-13] MEDS ORDERED: SODIUM CHLOR 0.9% IV.SIG SCH (20:30)
[2018-08-13] MEDS ORDERED: Oseltamivir Phosphate 75 MG Capsule PO SCH (21:00)
[2018-08-13] MEDS: Oseltamivir Phosphate 75 MG Capsule PO SCH (22:02)
[2018-08-13] MEDS: Senna/Docusate Sodium 8.6/50 MG Tablet PO SCH (22:02)
[2018-08-13] MEDS: Mirtazapine 15 MG Tablet PO SCH (22:02)
[2018-08-14] MEDS: Sod Chloride 0.9% Inj 1,000 ML IV.CONT SCH ×5 (00:53→23:00)
[2018-08-14] MEDS: Piperacil/Tazo 4.5 GM Premix 4.5 GM/100 ML BAG IV.SIG SCH ×4 (03:54→20:13)
[2018-08-14] MEDS: Vancomycin Inj 1,250 MG in Sodium Chlor 0.9% Inj 250 ML IV.SIG SCH ×2 (06:06→17:00)
[2018-08-14 07:17] LABS: Baso % (Auto) 0.5 % (0.0-2.0); Eos # (Auto) 0.1 th/mm3 (0.0-0.4); Eos % (Auto) 2.3 % (0.0-4.0); Hematocrit 32.5 % (39.0-51.0); Hemoglobin 11.1 gm/dL (13.0-17.0); Lymph # (Auto) 2.4 th/mm3 (1.0-4.8); Lymph % (Auto) 41.8 % (9.0-44.0); Mean Corpuscular HGB Conc 34.3 % (32.0-36.0); Mean Corpuscular Hemoglobin 29.3 pg (27.0-34.0); Mean Corpuscular Volume 85.5 fL (80.0-100.0); Mean Platelet Volume 7.9 fL (7.0-11.0); Mono # (Auto) 0.7 th/mm3 (0.0-0.9); Mono % (Auto) 12.5 % (0.0-8.0); Neut # (Auto) 2.5 th/mm3 (1.8-7.7); Neut % (Auto) 42.9 % (16.0-70.0); Platelet Count 137 th/mm3 (150-450); Red Cell Distribution Width 13.6 % (11.6-17.2); White Blood Count 5.8 th/mm3 (4.0-11.0)
[2018-08-14 07:41] LABS: Alanine Aminotransferase 18 U/L (12-78); Albumin 2.5 g/dL (3.4-5.0); Alkaline Phosphatase 45 U/L (45-117); Anion Gap 6 meq/L (5-15); Aspartate Aminotransferase 23 U/L (15-37); Blood Urea Nitrogen 8 mg/dL (7-18); Calcium 7.9 mg/dL (8.5-10.1); Carbon Dioxide 24.7 meq/L (21.0-32.0); Chloride 112 meq/L (98-107); Glomerular Filtration Rate Greater Than 89 mL/min (>89); Glucose,Random 71 mg/dL (74-106); Potassium 3.6 meq/L (3.5-5.1); Sodium 143 meq/L (136-145); Total Protein 7.2 g/dL (6.4-8.2)
[2018-08-14] MEDS: Meloxicam 15 MG Tablet PO SCH (08:05)
[2018-08-14] MEDS: Oseltamivir Phosphate 75 MG Capsule PO SCH ×2 (08:06→20:18)
[2018-08-14] MEDS: Senna/Docusate Sodium 8.6/50 MG Tablet PO SCH ×2 (08:06→20:18)
[2018-08-14] MEDS: Polyethylene Glycol 3350 17 GM Packet PO SCH (08:45)
--- NOTE | 2018-08-14 12:51 | P.PNFP ---
Subjective Interval history: 62-year-old male admitted for sepsis secondary to suspected [facility] acquired pneumonia, found to be positive for flu. Patient seen and examined this morning. He states that he is feeling improved from yesterday. Discussed risks and benefits of to completing 24 hours of antibiotics and follow-up cultures after being discharged back to SNF versus completing 48 hours of IV antibiotics in the hospital and waiting for confirmatory blood and sputum cultures prior to discharge. Sister, who is POA, and [id number] are at bedside, who would like the patient to see if 48 hours of IV antibiotics before returning to the [facility]. She states that he received his flu vaccine earlier this year. Also notes that his mentation seems to be at baseline at present. She would also like him to be evaluated by speech therapy for for cognition and speech evaluation possible continue treatment as an outpatient. She otherwise expresses understanding and agrees with plan. All questions answered. <Ary Krause - 08/14/18 14:40> Results - Labs Result diagrams: 08/14/18 06:56 08/14/18 06:56 <Agustin Land - 08/14/18 16:24> Abnormal lab results 08/14/18 08/14/18 Range/Units 06:56 06:56 RBC 3.80 L (4.50-5.90) mil/mm3 Hgb 11.1 L (13.0-17.0) gm/dL Hct 32.5 L (39.0-51.0) % Plt Count 137 L (150-450) th/mm3 [place] % (Auto) 12.5 H (0.0-8.0) % Chloride 112 H D (98-107) meq/L Creatinine 0.42 L (0.60-1.30) mg/dL Random Glucose 71 L (74-106) mg/dL Calcium 7.9 L (8.5-10.1) mg/dL Albumin 2.5 L D (3.4-5.0) g/dL Short CBC 08/14/18 Range/Units 06:56 WBC 5.8 (4.0-11.0) th/mm3 Hgb 11.1 L (13.0-17.0) gm/dL Hct 32.5 L (39.0-51.0) % Plt Count 137 L (150-450) th/mm3 BMP 08/14/18 06:56 Sodium 143 D Potassium 3.6 Chloride 112 H D Carbon Dioxide 24.7 BUN 8 Creatinine 0.42 L Calcium 7.9 L Liver Function 08/14/18 Range/Units 06:56 Total Bilirubin 0.6 (0.2-1.0) mg/dL AST 23 (15-37) U/L ALT 18 (12-78) U/L Alkaline Phosphatase 45 (45-117) U/L Albumin 2.5 L D (3.4-5.0) g/dL <Agustin Land - 08/14/18 16:24> Abnormal lab results 08/14/18 08/14/18 Range/Units 06:56 06:56 RBC 3.80 L (4.50-5.90) mil/mm3 Hgb 11.1 L (13.0-17.0) gm/dL Hct 32.5 L (39.0-51.0) % Plt Count 137 L (150-450) th/mm3 [place] % (Auto) 12.5 H (0.0-8.0) % Chloride 112 H D (98-107) meq/L Creatinine 0.42 L (0.60-1.30) mg/dL Random Glucose 71 L (74-106) mg/dL Calcium 7.9 L (8.5-10.1) mg/dL Albumin 2.5 L D (3.4-5.0) g/dL Short CBC 08/14/18 Range/Units 06:56 WBC 5.8 (4.0-11.0) th/mm3 Hgb 11.1 L (13.0-17.0) gm/dL Hct 32.5 L (39.0-51.0) % Plt Count 137 L (150-450) th/mm3 [facility] 08/14/18 06:56 Sodium 143 D Potassium 3.6 Chloride 112 H D Carbon Dioxide 24.7 BUN 8 Creatinine 0.42 L Calcium 7.9 L Liver Function 08/14/18 Range/Units 06:56 Total Bilirubin 0.6 (0.2-1.0) mg/dL AST 23 (15-37) U/L ALT 18 (12-78) U/L Alkaline Phosphatase 45 (45-117) U/L Albumin 2.5 L D (3.4-5.0) g/dL <Ary Krause - 08/14/18 12:51> Physical Exam Vital signs: Vital Signs 08/13/18 20:00 08/14/18 00:00 08/14/18 02:19 Temperature 98.1 F 97.7 F Pulse Rate 62 63 Respiratory Rate 20 20 18 Blood Pressure 140/65 135/63 Pulse Oximetry 99 94 L 08/14/18 04:00 08/14/18 07:27 08/14/18 11:31 Temperature 97.7 F 98.1 F 98.2 F Pulse Rate 60 66 61 Respiratory Rate 20 18 20 Blood Pressure 139/65 148/66 H 157/67 H Pulse Oximetry 94 L 95 93 L Intake & Output 08/13/18 08/14/18 08/14/18 18:59 06:59 18:59 Intake Total 4360 / 4360 1462.5 / 1462.5 462.5 / 462.5 Output Total 1200 / 1200 200 / 200 300 / 300 Balance 3160 / 3160 1262.5 / 1262.5 162.5 / 162.5 Weight 59.5 kg Intake: IV 3400 / 3400 1462.5 / 1462.5 462.5 / 462.5 NS Inj 1,000 ML @ 125 mls/hr IV 1000 / 1000 1000 / 1000 .CONT .Q8H [facility] Rx#:[id number] Zosyn 3.375 GM Premix 3.375 gm 50 / 50 In 50 ml @ 100 mls/hr IV.SIG ONCE ONE Rx#:[id number] Zosyn 4.5 GM Premix 4.5 gm In 100 / 100 200 / 200 200 / 200 100 ml @ 200 mls/hr IV.SIG Q6H [facility] Rx#:[id number] NS Inj 1,000 ML @ 2000 mls/hr 2000 / 2000 IV.SIG Q30M [facility] Rx#:[id number] Vancomycin Inj 1,000 MG In NS 250 / 250 Inj 250 ML @ 250 mls/hr IV.SIG ONCE ONE Rx#:[id number] Vancomycin Inj 1,250 MG In NS 262.5 / 262.5 262.5 / 262.5 Inj 250 ML @ 250 mls/hr IV.SIG Q12H [facility] Rx#:[id number] Oral 960 / 960 Output: Urine 1200 / 1200 200 / 200 300 / 300 Other: Date of Last Bowel Movement 08/14/18 <Agustin Land K - 08/14/18 16:24> Vital Signs 08/13/18 16:00 08/13/18 20:00 08/14/18 00:00 Temperature 97.4 F L 98.1 F 97.7 F Pulse Rate 56 L 62 63 Respiratory Rate 18 20 20 Blood Pressure 124/57 L 140/65 135/63 Pulse Oximetry 97 99 94 L 08/14/18 02:19 08/14/18 04:00 08/14/18 07:27 Temperature 97.7 F 98.1 F Pulse Rate 60 66 Respiratory Rate 18 20 18 Blood Pressure 139/65 148/66 H Pulse Oximetry 94 L 95 08/14/18 11:31 Temperature 98.2 F Pulse Rate 61 Respiratory Rate 20 Blood Pressure 157/67 H Pulse Oximetry 93 L Intake & Output 08/13/18 08/14/18 08/14/18 18:59 06:59 18:59 Intake Total 4360 / 4360 1462.5 / 1462.5 362.5 / 362.5 Output Total 1200 / 1200 200 / 200 300 / 300 Balance 3160 / 3160 1262.5 / 1262.5 62.5 / 62.5 Weight 59.5 kg Intake: IV 3400 / 3400 1462.5 / 1462.5 362.5 / 362.5 NS Inj 1,000 ML @ 125 mls/hr IV 1000 / 1000 1000 / 1000 .CONT .Q8H [facility] Rx#:[id number] Zosyn 3.375 GM Premix 3.375 gm 50 / 50 In 50 ml @ 100 mls/hr IV.SIG ONCE ONE Rx#:[id number] Zosyn 4.5 GM Premix 4.5 gm In 100 / 100 200 / 200 100 / 100 100 ml @ 200 mls/hr IV.SIG Q6H [facility] Rx#:[id number] NS Inj 1,000 ML @ 2000 mls/hr 1999 / 1999 IV.SIG Q30M [facility] Rx#:[id number] Vancomycin Inj 1,000 MG In NS 250 / 250 Inj 250 ML @ 250 mls/hr IV.SIG ONCE ONE Rx#:[id number] Vancomycin Inj 1,250 MG In NS 262.5 / 262.5 262.5 / 262.5 Inj 250 ML @ 250 mls/hr IV.SIG Q12H [facility] Rx#:[id number] Oral 960 / 960 Output: Urine 1200 / 1200 200 / 200 300 / 300 Other: Date of Last Bowel Movement 08/14/18 <Ary Krause - 08/14/18 12:51> Narrative: GENERAL: 62-year-old thin frail male sitting up comfortably in bed. In no acute distress. SKIN: Warm and dry. HEAD: Atraumatic. Normocephalic. EYES: EMOI. No scleral icterus. No injection or drainage. ENT: No nasal bleeding or discharge. Mucous membranes pink and moist. Airway patent. CARDIOVASCULAR: Regular rate and rhythm, except for mild tachycardia. No murmur. RESPIRATORY: No accessory muscle use. Decreased breath sounds diffusely, coarse crackles worse on right lower lung field compared to left lower lung duarte. MUSCULOSKELETAL: Extremities without clubbing, cyanosis, or edema. Well-healed RLE BKA. No calf tenderness on the left. Well-healed surgical scar extending from T7 down to L5 on back along the midline. NEUROLOGICAL: Awake and alert. Oriented to self. No obvious cranial nerve deficits. Moving all extremities spontaneously. Trouble with word finding. Follows commands. PSYCHIATRIC: Appropriate mood and affect. <Ary Krause - 08/14/18 12:51> Assessment and Plan - Assessment (1) Sepsis Code(s): A41.9 - Sepsis, unspecified organism Status: Inactive (2) Pneumonia Code(s): J18.9 - Pneumonia, unspecified organism Status: Inactive (3) Influenza A Code(s): J10.1 - Influenza due to other identified influenza virus with other respiratory manifestations Status: Acute (4) Altered mental status Code(s): R41.82 - Altered mental status, unspecified Status: Resolved (5) Status post cerebrovascular accident Code(s): Z86.73 - Personal history of transient ischemic attack (TIA), and cerebral infarction without residual deficits Status: Chronic (6) Chronic back pain greater than 3 months duration Code(s): M54.9 - Dorsalgia, unspecified; G89.29 - Other chronic pain Status: Chronic (7) Constipation Code(s): K59.00 - Constipation, unspecified Status: Chronic (8) Nutrition, metabolism, and development symptoms Code(s): R63.8 - Other symptoms and signs concerning food and fluid intake Status: Acute (9) DVT prophylaxis Status: Acute <Agustin Land - 08/14/18 16:24> (1) Sepsis Code(s): A41.9 - Sepsis, unspecified organism Status: Inactive (2) Pneumonia Code(s): J18.9 - Pneumonia, unspecified organism Status: Inactive (3) Influenza A Code(s): J10.1 - Influenza due to other identified influenza virus with other respiratory manifestations Status: Acute (4) Altered mental status Code(s): R41.82 - Altered mental status, unspecified Status: Resolved (5) Status post cerebrovascular accident Code(s): Z86.73 - Personal history of transient ischemic attack (TIA), and cerebral infarction without residual deficits Status: Chronic (6) Chronic back pain greater than 3 months duration Code(s): M54.9 - Dorsalgia, unspecified; G89.29 - Other chronic pain Status: Chronic (7) Constipation Code(s): K59.00 - Constipation, unspecified Status: Chronic (8) Nutrition, metabolism, and development symptoms Code(s): R63.8 - Other symptoms and signs concerning food and fluid intake Status: Acute (9) DVT prophylaxis Status: Acute <Ary Krause Patricia - 08/14/18 14:37> - Assessment and Plan Sepsis likely secondary to pneumonia Met sepsis criteria for tachycardia of up to 150s and fever up to 102.3 F, resolved with 1L NS and Tylenol. -Chest x-ray showed Bibasilar densities greater left lower lobe could be atelectasis or infiltrates. -EKG in ED showed sinus tachycardia of 150. Ordered repeat EKG which showed normal sinus rhythm rate of 70. -Urinalysis: Small occult blood, no signs of infection. No culture indicated -Urine Legionella ag and pneumococcal ag negative. -Repeat CBC and CMP within normal limits -Blood cultures pending -Sputum cultures ordered -Given Zosyn 3.375 g IV and Vancomycin 1g IV in the ED -Continue Zosyn 3.375g IV q8h and Vancomycin 1.25 g IV q12h for HAP, started on 08/13, plan to continue for 48 hours. -Given 1L NS in the ED -Incentive spirometer, acapella/PEP/chest physiotherapy ordered -CM consulted for discharge planning Influenza A positive -Tamiflu started on 08/13 -On droplet precautions Altered mental status, resolving Oriented to self. Patient's sister states that he is at or near baseline today. Trouble with word finding following CVA. -CT head showed remote left parietal infarct c/w prior CVA, negative for acute abnormalities S/p CVA 1 year ago, with residual trouble with word finding and weakness of right arm -Continue home ASA 81 mg daily -PT/OT ordered due to deconditioned state -Speech therapy ordered for dysarthria and cognition evaluation. Hx of chronic back pain and BKA s/p fall -PDMP reviewed. Receiving equivalent of Oxycodone 15mg PO q6 hr. Currently receiving in 3-[address] Zelaya. Last dose received last night. -Continue home dose of Oxycodone 15mg PO q6hr Hx of constipation -Continue home Miralax daily FEN -Fluids: Patient tolerating PO liquids, will hold off on IVF at this time -Electrolytes: No significant electrolyte abnormalities, will continue to monitor and replete as needed. -Diet: Regular diet DVT prophylaxis -SCD and compression hose on LLE dw Dr. Land and Dr. Morris <Ary Krause Patricia - 08/14/18 14:40> - Attending Attestation The exam, history, and the medical decision-making described in the above note were completed with the assistance of the resident physician. I reviewed and agree with the findings presented. I attest that I had a [id number] encounter with the patient on the same day, and personally performed and documented my assessment and findings in the medical record. clinically very well today, no o2 needed, afebrile and vitals normalized sepsis resolved symptoms potentially all explained by flu but could have superimposed bacterial pneumonia given initial sepsis presentation will wait 48hrs for blood cultures cont empiric abx and tamiflu. de-escalate abx today or tomorrow for discharge family requesting speech evaluation and this is reasonable given recent CVA and pneumonia could have been aspiration. will get speech eval and send recs with him back to [facility]. anticipate d/c back to SNF tomorrow. <Agustin Land - 08/14/18 16:24> <Jeffrey DelcidPriscillaAry B - Last Filed: 08/14/18 14:37> (1) Sepsis Qualifiers: Sepsis type: sepsis due to unspecified organism Qualified Code(s): A41.9 - Sepsis, unspecified organism (2) Pneumonia Qualifiers: Pneumonia type: due to unspecified organism Laterality: bilateral Lung location: lower lobe of lung Qualified Code(s): J18.1 - Lobar pneumonia, unspecified organism <Agustin Land - Last Filed: 08/14/18 16:24> (1) Sepsis Qualifiers: Sepsis type: sepsis due to unspecified organism Qualified Code(s): A41.9 - Sepsis, unspecified organism (2) Pneumonia Qualifiers: Pneumonia type: due to unspecified organism Laterality: bilateral Lung location: lower lobe of lung Qualified Code(s): J18.1 - Lobar pneumonia, unspecified organism <Jeffrey DelcidPriscillaAry B - Last Filed: 08/14/18 14:37> (1) Sepsis Qualifiers: Sepsis type: sepsis due to unspecified organism Qualified Code(s): A41.9 - Sepsis, unspecified organism (2) Pneumonia Qualifiers: Pneumonia type: due to unspecified organism Laterality: bilateral Lung location: lower lobe of lung Qualified Code(s): J18.1 - Lobar pneumonia, unspecified organism <Agustin Land - Last Filed: 08/14/18 16:24> (1) Sepsis Qualifiers: Sepsis type: sepsis due to unspecified organism Qualified Code(s): A41.9 - Sepsis, unspecified organism (2) Pneumonia Qualifiers: Pneumonia type: due to unspecified organism Laterality: bilateral Lung location: lower lobe of lung Qualified Code(s): J18.1 - Lobar pneumonia, unspecified organism
[2018-08-14] MEDS: Enoxaparin Inj 40 MG/0.4 ML Syringe SQ SCH (14:48)
--- NOTE | 2018-08-14 15:02 | ECG ---
Date Performed: 08/13/2018 Time Performed: 06:53:34 PTAGE: 62 years EKG: SINUS TACHYCARDIA WITH SHORT CO INTERVAL, POSSIBLE ATRIAL FLUTTER NONSPECIFIC ST & T-WAVE A BNORMALITY ABNORMAL RHYTHM ECG NO PREVIOUS TRACING DOCTOR: Mason Stewart Interpretating Date/Time 08/14/2018 15:00:07
--- NOTE | 2018-08-14 16:50 | ECG ---
Date Performed: 08/13/2018 Time Performed: 12:22:28 PTAGE: 62 years EKG: Sinus rhythm NORMAL ECG Compared to PREVIOUS TRACING , more normalization. PREVIOUS TRACIN08/13/2018 06.53 DOCTOR: Mason Stewart Interpretating Date/Time 08/14/2018 16:48:44
[2018-08-14] MEDS: Mirtazapine 15 MG Tablet PO SCH (20:19)
[2018-08-15] MEDS: Piperacil/Tazo 4.5 GM Premix 4.5 GM/100 ML BAG IV.SIG SCH ×4 (04:33→21:38)
[2018-08-15] MEDS ORDERED: Pharmacy Ordered Lab Info OTHER ONE (05:45)
[2018-08-15] MEDS: Vancomycin Inj 1,250 MG in Sodium Chlor 0.9% Inj 250 ML IV.SIG SCH ×2 (05:51→17:01)
[2018-08-15] MEDS: Polyethylene Glycol 3350 17 GM Packet PO SCH (08:18)
[2018-08-15] MEDS: Meloxicam 15 MG Tablet PO SCH (08:18)
[2018-08-15] MEDS: Oseltamivir Phosphate 75 MG Capsule PO SCH ×2 (08:18→21:37)
[2018-08-15] MEDS: Senna/Docusate Sodium 8.6/50 MG Tablet PO SCH ×2 (08:18→21:37)
--- NOTE | 2018-08-15 08:38 | P.PNFP ---
Subjective Interval history: Patient seen and examined this morning. Patient has no complaints at this time and denies shortness of breath, chest pain, fever, nausea, vomiting, abdominal pain, or leg swelling. Per nursing staff, patient's oxygen saturation decreased to 88-92% early in the morning, and he was placed on 2 L nasal cannula at the time. On examination, he is satting 96% on room air. Per nursing staff he is also had worsening productive cough with blood-tinged sputum. All questions answered. <Ary Krause - 08/15/18 20:07> Results - Labs Result diagrams: 08/14/18 06:56 08/14/18 06:56 <Agustin Land 08/15/18 21:05> Abnormal lab results 08/15/18 Range/Units 05:34 Vancomycin Trough 12.3 H (5.0-10.0) mcg/mL <Agustin Land 08/15/18 21:05> Abnormal lab results 08/15/18 Range/Units 05:34 Vancomycin Trough 12.3 H (5.0-10.0) mcg/mL <Ary Krause - 08/15/18 08:38> - Imaging Impressions Chest CT 08/15/18 00:00 CONCLUSION: 1. Left perihilar and lower lobe pneumonia. 2. Small bilateral pleural effusions and with mild dependent/compressive atelectasis of both bases. <Agustin Land 08/15/18 21:05> Physical Exam Vital signs: Vital Signs 08/15/18 00:35 08/15/18 04:30 08/15/18 08:10 Temperature 98.5 F 98.6 F 97.7 F Pulse Rate 60 69 70 Respiratory Rate 19 19 20 Blood Pressure 142/67 H 175/76 H 182/80 H Pulse Oximetry 90 L 92 L 97 08/15/18 08:22 08/15/18 11:50 08/15/18 15:45 Temperature 98 F 98.8 F Pulse Rate 75 81 Respiratory Rate 20 20 Blood Pressure 198/81 H 169/119 H Pulse Oximetry 94 L 97 96 Intake & Output 08/15/18 08/15/18 08/16/18 06:59 18:59 06:59 Intake Total 1200 / 1200 1725.0 / 1725.0 Output Total 600 / 600 700 / 700 Balance 600 / 600 1025.0 / 1025.0 Weight 62.2 kg Intake: IV 1200 / 1200 1725.0 / 1725.0 NS Inj 1,000 ML @ 125 mls/hr IV 1000 / 1000 1000 / 1000 .CONT .Q8H KEM Rx#:[id number] Zosyn 4.5 GM Premix 4.5 gm In 200 / 200 200 / 200 100 ml @ 200 mls/hr IV.SIG Q6H KEM Rx#:[id number] Vancomycin Inj 1,250 MG In NS 525.0 / 525.0 Inj 250 ML @ 250 mls/hr IV.SIG Q12H KEM Rx#:[id number] Output: Urine 600 / 600 700 / 700 Other: Date of Last Bowel Movement 08/14/18 08/13/18 <Agustin Land - 08/15/18 21:05> Vital Signs 08/14/18 11:31 08/14/18 16:00 08/14/18 19:25 Temperature 98.2 F 97.9 F 97.6 F Pulse Rate 61 67 64 Respiratory Rate 20 18 20 Blood Pressure 157/67 H 138/65 108/53 L Pulse Oximetry 93 L 95 94 L 08/15/18 00:35 08/15/18 04:30 08/15/18 08:10 Temperature 98.5 F 98.6 F 97.7 F Pulse Rate 60 69 70 Respiratory Rate 19 19 20 Blood Pressure 142/67 H 175/76 H 182/80 H Pulse Oximetry 90 L 92 L 97 08/15/18 08:22 Temperature Pulse Rate Respiratory Rate Blood Pressure Pulse Oximetry 94 L Intake & Output 08/14/18 08/15/18 08/15/18 18:59 06:59 18:59 Intake Total 1445.0 / 1445.0 1200 / 1200 1262.5 / 1262.5 Output Total 600 / 600 600 / 600 500 / 500 Balance 845.0 / 845.0 600 / 600 762.5 / 762.5 Weight 62.2 kg Intake: IV 725.0 / 725.0 1200 / 1200 1262.5 / 1262.5 NS Inj 1,000 ML @ 125 mls/hr IV 1000 / 1000 1000 / 1000 .CONT .Q8H KEM Rx#:[id number] Zosyn 4.5 GM Premix 4.5 gm In 200 / 200 200 / 200 100 ml @ 200 mls/hr IV.SIG Q6H KEM Rx#:[id number] Vancomycin Inj 1,250 MG In NS 525.0 / 525.0 262.5 / 262.5 Inj 250 ML @ 250 mls/hr IV.SIG Q12H KEM Rx#:[id number] Oral 720 / 720 Output: Urine 600 / 600 600 / 600 500 / 500 Other: Date of Last Bowel Movement 08/14/18 08/14/18 08/13/18 <Ary Krause - 08/15/18 08:38> Narrative: GENERAL: 62-year-old thin frail male sitting up comfortably in bed. In no acute distress. SKIN: Warm and dry. HEAD: Atraumatic. Normocephalic. EYES: EMOI. No scleral icterus. No injection or drainage. ENT: No nasal bleeding or discharge. Mucous membranes pink and moist. Airway patent. CARDIOVASCULAR: Regular rate and rhythm, except for mild tachycardia. No murmur. RESPIRATORY: No accessory muscle use. Decreased breath sounds diffusely, but equal bilaterally. Coarse crackles in bilateral lower lung duarte. MUSCULOSKELETAL: Extremities without clubbing, cyanosis, or edema. Well-healed RLE BKA. No calf tenderness on the left. Well-healed surgical scar extending from T7 down to L5 on back along the midline. NEUROLOGICAL: Awake and alert. Oriented to self. No obvious cranial nerve deficits. Moving all extremities spontaneously. Trouble with word finding. Follows commands. PSYCHIATRIC: Appropriate mood and affect. <Ary Krause - 08/15/18 20:07> Assessment and Plan - Assessment (1) Sepsis Code(s): A41.9 - Sepsis, unspecified organism Status: Inactive (2) Pneumonia Code(s): J18.9 - Pneumonia, unspecified organism Status: Inactive (3) Increased oxygen demand Code(s): R68.89 - Other general symptoms and signs Status: Acute (4) Hemoptysis Code(s): R04.2 - Hemoptysis Status: Acute (5) Hypertension Code(s): I10 - Essential (primary) hypertension Status: Acute (6) Influenza A Code(s): J10.1 - Influenza due to other identified influenza virus with other respiratory manifestations Status: Acute (7) Altered mental status Code(s): R41.82 - Altered mental status, unspecified Status: Resolved (8) Status post cerebrovascular accident Code(s): Z86.73 - Personal history of transient ischemic attack (TIA), and cerebral infarction without residual deficits Status: Chronic (9) Chronic back pain greater than 3 months duration Code(s): M54.9 - Dorsalgia, unspecified; G89.29 - Other chronic pain Status: Chronic (10) Constipation Code(s): K59.00 - Constipation, unspecified Status: Chronic (11) Nutrition, metabolism, and development symptoms Code(s): R63.8 - Other symptoms and signs concerning food and fluid intake Status: Acute (12) DVT prophylaxis Status: Acute <Agustin Land - 08/15/18 21:05> (1) Sepsis Code(s): A41.9 - Sepsis, unspecified organism Status: Inactive (2) Pneumonia Code(s): J18.9 - Pneumonia, unspecified organism Status: Inactive (3) Increased oxygen demand Code(s): R68.89 - Other general symptoms and signs Status: Acute (4) Hemoptysis Code(s): R04.2 - Hemoptysis Status: Acute (5) Hypertension Code(s): I10 - Essential (primary) hypertension Status: Acute (6) Influenza A Code(s): J10.1 - Influenza due to other identified influenza virus with other respiratory manifestations Status: Acute (7) Altered mental status Code(s): R41.82 - Altered mental status, unspecified Status: Resolved (8) Status post cerebrovascular accident Code(s): Z86.73 - Personal history of transient ischemic attack (TIA), and cerebral infarction without residual deficits Status: Chronic (9) Chronic back pain greater than 3 months duration Code(s): M54.9 - Dorsalgia, unspecified; G89.29 - Other chronic pain Status: Chronic (10) Constipation Code(s): K59.00 - Constipation, unspecified Status: Chronic (11) Nutrition, metabolism, and development symptoms Code(s): R63.8 - Other symptoms and signs concerning food and fluid intake Status: Acute (12) DVT prophylaxis Status: Acute <Ary Krause - 08/15/18 21:00> - Assessment and Plan Sepsis likely secondary to pneumonia Met sepsis criteria for tachycardia of up to 150s and fever up to 102.3 F, resolved with 1L NS and Tylenol. -Chest x-ray showed Bibasilar densities greater left lower lobe could be atelectasis or infiltrates. -EKG in ED showed sinus tachycardia of 150. Ordered repeat EKG which showed normal sinus rhythm rate of 70. -Urinalysis: Small occult blood, no signs of infection. No culture indicated -Urine Legionella ag and pneumococcal ag negative. -Repeat CBC and CMP within normal limits -Blood cultures pending -Sputum cultures ordered -Given Zosyn 3.375 g IV and Vancomycin 1g IV in the ED -Continue Zosyn 3.375g IV q8h and Vancomycin 1.25 g IV q12h for HAP, started on 08/13 -Given 1L NS in the ED -Incentive spirometer, acapella/PEP/chest physiotherapy ordered -CM consulted for discharge planning Increased oxygen demand overnight Placed on 2L NC overnight for oxygen saturation 88-92%. O2 sat 96% on RA on evaluation this morning. -Titrate O2 as needed -IVF stopped -Continue IS/acapella/chest physiotherapy Hemoptysis Blood tinged sputum noted by nursing staff this morning. Airway trauma due to increased cough vs. mass vs. PE -CT chest with contrast ordered Hypertension -BP up to 180s/80s this morning -Hydralazine 25 mg PO PRN every 8 hrs as needed for SBP>160, DBP>100 Influenza A positive -Tamiflu started on 08/13 -On droplet precautions Altered mental status, resolving Oriented to self. Patient's sister states that he is at or near baseline today. Trouble with word finding following CVA. -CT head showed remote left parietal infarct c/w prior CVA, negative for acute abnormalities S/p CVA 1 year ago, with residual trouble with word finding and weakness of right arm -Continue home ASA 81 mg daily -PT/OT ordered due to deconditioned state -Speech therapy ordered for dysarthria and cognition evaluation. Hx of chronic back pain and BKA s/p fall -PDMP reviewed. Receiving equivalent of Oxycodone 15mg PO q6 hr. Currently receiving in 3-[address] Zelaya. Last dose received last night. -Continue home dose of Oxycodone 15mg PO q6hr Hx of constipation -Continue home Miralax daily FEN -Fluids: Patient tolerating PO liquids. -Electrolytes: No significant electrolyte abnormalities, will continue to monitor and replete as needed. -Diet: Regular diet DVT prophylaxis -SCD and compression hose on LLE dw Dr. Egan and Dr. Land <Ary Krause - 08/15/18 20:07> - Attending Attestation The exam, history, and the medical decision-making described in the above note were completed with the assistance of the resident physician. I reviewed and agree with the findings presented. I attest that I had a [id number] encounter with the patient on the same day, and personally performed and documented my assessment and findings in the medical record. new hemoptysis and starting to require a little O2 again. i saw bloody sputum in the room. had been on IVF. o2 requirements gone later in day after stopping IVF ST with no home recs, regular diet CT chest showed pneumonia: hemoptysis likely 2/2 this. cont vanc/zosyn one more day. BPs labile but may require chronic therapy if remain elevated. hopeful d/c tomorrow on POs if no O2 required <Agustin Land - 08/15/18 21:05> <Ary Krause - Last Filed: 08/15/18 21:00> (1) Sepsis Qualifiers: Sepsis type: sepsis due to unspecified organism Qualified Code(s): A41.9 - Sepsis, unspecified organism (2) Pneumonia Qualifiers: Pneumonia type: due to unspecified organism Laterality: bilateral Lung location: lower lobe of lung Qualified Code(s): J18.1 - Lobar pneumonia, unspecified organism <Agustin Land - Last Filed: 08/15/18 21:05> (1) Sepsis Qualifiers: Sepsis type: sepsis due to unspecified organism Qualified Code(s): A41.9 - Sepsis, unspecified organism (2) Pneumonia Qualifiers: Pneumonia type: due to unspecified organism Laterality: bilateral Lung location: lower lobe of lung Qualified Code(s): J18.1 - Lobar pneumonia, unspecified organism <Ary Krause B - Last Filed: 08/15/18 21:00> (1) Sepsis Qualifiers: Sepsis type: sepsis due to unspecified organism Qualified Code(s): A41.9 - Sepsis, unspecified organism (2) Pneumonia Qualifiers: Pneumonia type: due to unspecified organism Laterality: bilateral Lung location: lower lobe of lung Qualified Code(s): J18.1 - Lobar pneumonia, unspecified organism <Agustin Land K - Last Filed: 08/15/18 21:05> (1) Sepsis Qualifiers: Sepsis type: sepsis due to unspecified organism Qualified Code(s): A41.9 - Sepsis, unspecified organism (2) Pneumonia Qualifiers: Pneumonia type: due to unspecified organism Laterality: bilateral Lung location: lower lobe of lung Qualified Code(s): J18.1 - Lobar pneumonia, unspecified organism
[2018-08-15] MEDS ORDERED: hydrALAZINE 25 MG Tablet PO PRN (11:41)
[2018-08-15] MEDS: Enoxaparin Inj 40 MG/0.4 ML Syringe SQ SCH (15:04)
--- NOTE | 2018-08-15 16:10 | CT ---
EXAM DATE: 08/15/2018 4:03 PM EST AGE/SEX: 62 years / Male INDICATIONS: Hemoptysis. CLINICAL DATA: This is the patient's initial encounter. Patient reports that signs and symptoms have been present for 2 days and indicates a pain score of 0/10. MEDICAL/SURGICAL HISTORY: Carotid stenosis. . Spine surgery RADIATION DOSE: 5.69 CTDI (mGy) COMPARISON: No prior exams available for comparison. TECHNIQUE: Multiple contiguous axial images were obtained through the chest during bolus infusion of 68 ml Omnipaque 350 (iohexol) nonionic water-soluble contrast as a single exam dose. Images were obtained in suspended respiration using multiple row detector helical technique. Using automated exp osure control and adjustment of the mA and/or kV according to patient size, radiation dose was kept a s low as reasonably achievable to obtain optimal diagnostic quality images. DICOM format image data is available electronically for review and comparison. FINDINGS: There are small bilateral pleural effusions and with mild dependent/compressive atelectasis of both b ases. Patchy, less specific parenchymal consolidation is seen in the left perihilar region and aerate d portions of the left lower lobe. No pneumothorax. There is no pathologic-appearing mediastinal, hilar or axillary lymphadenopathy. There is panchamber enlargement of the heart. Coronary artery calcification noted. Patient has a long segment thoracolumbar fusion with posterior instrumentation. There are nonacute ap pearing compression fractures of T8 and L1. Mild superior endplate concavity seen of the T3 and T4, a lso probably nonacute. CONCLUSION: 1. Left perihilar and lower lobe pneumonia. 2. Small bilateral pleural effusions and with mild dependent/compressive atelectasis of both bases. Electronically signed by: Escobar Han MD Board Certified Radiologist 08/15/2018 4:09 PM EST
[2018-08-15] MEDS: Mirtazapine 15 MG Tablet PO SCH (21:37)
[2018-08-16] MEDS: Piperacil/Tazo 4.5 GM Premix 4.5 GM/100 ML BAG IV.SIG SCH (04:00)
[2018-08-16] MEDS: Vancomycin Inj 1,250 MG in Sodium Chlor 0.9% Inj 250 ML IV.SIG SCH (05:46)
[2018-08-16 07:55] LABS: Glomerular Filtration Rate Greater Than 89 mL/min (>89)
--- NOTE | 2018-08-16 08:52 | P.PNFP ---
Subjective Interval history: Patient seen and examined this morning. Patient denies shortness of breath, further hemoptysis or chest pain. He remained afebrile and has not needed O2 supplementation overnight. Oriented to self, year and state this morning. Denies headache, chest pain, fevers, abdominal pain, leg pain or swelling. All questions answered. <Ary Krause 08/16/18 10:41> Results - Labs Result diagrams: 08/14/18 06:56 08/16/18 06:18 <Agustin Land 08/16/18 11:42> Abnormal lab results 08/16/18 Range/Units 06:18 Creatinine 0.42 L (0.60-1.30) mg/dL [facility] 08/16/18 06:18 Creatinine 0.42 L <Agustin Land 08/16/18 11:42> Abnormal lab results 08/16/18 Range/Units 06:18 Creatinine 0.42 L (0.60-1.30) mg/dL [facility] 08/16/18 06:18 Creatinine 0.42 L <Ary Krause 08/16/18 08:52> - Imaging Impressions Chest CT 08/15/18 00:00 CONCLUSION: 1. Left perihilar and lower lobe pneumonia. 2. Small bilateral pleural effusions and with mild dependent/compressive atelectasis of both bases. <Agustin Land 08/16/18 11:42> Impressions Chest CT 08/15/18 00:00 CONCLUSION: 1. Left perihilar and lower lobe pneumonia. 2. Small bilateral pleural effusions and with mild dependent/compressive atelectasis of both bases. <Ary Krause 08/16/18 08:52> Physical Exam Vital signs: Vital Signs 08/15/18 11:50 08/15/18 15:45 08/15/18 20:00 Temperature 98 F 98.8 F Pulse Rate 75 81 Respiratory Rate 20 20 Blood Pressure 198/81 H 169/119 H Pulse Oximetry 97 96 97 08/15/18 20:20 08/15/18 22:10 08/16/18 00:35 Temperature 97.8 F 97.5 F L Pulse Rate 76 60 Respiratory Rate 16 14 18 Blood Pressure 146/68 H 148/66 H Pulse Oximetry 96 97 08/16/18 05:00 08/16/18 08:15 08/16/18 09:07 Temperature 98.1 F 97.5 F L Pulse Rate 63 58 L Respiratory Rate 16 20 Blood Pressure 145/66 H 154/68 H Pulse Oximetry 96 95 98 Intake & Output 08/15/18 08/16/18 08/16/18 18:59 06:59 18:59 Intake Total 1725.0 / 1725.0 462.5 / 462.5 Output Total 700 / 700 300 / 300 Balance 1025.0 / 1025.0 162.5 / 162.5 Weight 58.7 kg Intake: IV 1725.0 / 1725.0 462.5 / 462.5 NS Inj 1,000 ML @ 125 mls/hr IV 1000 / 1000 .CONT .Q8H KEM Rx#:[id number] Zosyn 4.5 GM Premix 4.5 gm In 200 / 200 200 / 200 100 ml @ 200 mls/hr IV.SIG Q6H K[facility] Rx#:[id number] Vancomycin Inj 1,250 MG In NS 525.0 / 525.0 262.5 / 262.5 Inj 250 ML @ 250 mls/hr IV.SIG Q12H [facility] Rx#:[id number] Output: Urine 700 / 700 300 / 300 Other: Date of Last Bowel Movement 08/13/18 08/15/18 <Agustin Land - 08/16/18 11:42> Vital Signs 08/15/18 11:50 08/15/18 15:45 08/15/18 20:00 Temperature 98 F 98.8 F Pulse Rate 75 81 Respiratory Rate 20 20 Blood Pressure 198/81 H 169/119 H Pulse Oximetry 97 96 97 08/15/18 20:20 08/15/18 22:10 08/16/18 00:35 Temperature 97.8 F 97.5 F L Pulse Rate 76 60 Respiratory Rate 16 14 18 Blood Pressure 146/68 H 148/66 H Pulse Oximetry 96 97 08/16/18 05:00 Temperature 98.1 F Pulse Rate 63 Respiratory Rate 16 Blood Pressure 145/66 H Pulse Oximetry 96 Intake & Output 08/15/18 08/16/18 08/16/18 18:59 06:59 18:59 Intake Total 1725.0 / 1725.0 462.5 / 462.5 Output Total 700 / 700 300 / 300 Balance 1025.0 / 1025.0 162.5 / 162.5 Weight 58.7 kg Intake: IV 1725.0 / 1725.0 462.5 / 462.5 NS Inj 1,000 ML @ 125 mls/hr IV 1000 / 1000 .CONT .Q8H KEM Rx#:[id number] Zosyn 4.5 GM Premix 4.5 gm In 200 / 200 200 / 200 100 ml @ 200 mls/hr IV.SIG Q6H KEM Rx#:[id number] Vancomycin Inj 1,250 MG In NS 525.0 / 525.0 262.5 / 262.5 Inj 250 ML @ 250 mls/hr IV.SIG Q12H KEM Rx#:[id number] Output: Urine 700 / 700 300 / 300 Other: Date of Last Bowel Movement 08/13/18 08/15/18 <Jeffrey DelcidAry Patricia - 08/16/18 08:52> Narrative: GENERAL: 62-year-old thin frail male sitting up comfortably in bed. In no acute distress. SKIN: Warm and dry. HEAD: Atraumatic. Normocephalic. EYES: EMOI. No scleral icterus. No injection or drainage. ENT: No nasal bleeding or discharge. Mucous membranes pink and moist. Airway patent. CARDIOVASCULAR: Regular rate and rhythm, except for mild tachycardia. No murmur. RESPIRATORY: No accessory muscle use. Decreased breath sounds diffusely, but equal bilaterally. Occasional, minimal coarse crackles in bilateral lower lung duarte, improved from yesterday. MUSCULOSKELETAL: Extremities without clubbing, cyanosis, or edema. Well-healed RLE BKA. No calf tenderness on the left. Well-healed surgical scar extending from T7 down to L5 on back along the midline. NEUROLOGICAL: Awake and alert. Oriented to self, year and state. No obvious cranial nerve deficits. Moving all extremities spontaneously. Trouble with word finding. Follows commands. PSYCHIATRIC: Appropriate mood and affect. <Jeffrey DelcidAry B - 08/16/18 10:41> Assessment and Plan - Assessment (1) Sepsis Code(s): A41.9 - Sepsis, unspecified organism Status: Inactive (2) Pneumonia Code(s): J18.9 - Pneumonia, unspecified organism Status: Inactive (3) Increased oxygen demand Code(s): R68.89 - Other general symptoms and signs Status: Acute (4) Hemoptysis Code(s): R04.2 - Hemoptysis Status: Acute (5) Hypertension Code(s): I10 - Essential (primary) hypertension Status: Acute (6) Influenza A Code(s): J10.1 - Influenza due to other identified influenza virus with other respiratory manifestations Status: Acute (7) Altered mental status Code(s): R41.82 - Altered mental status, unspecified Status: Resolved (8) Status post cerebrovascular accident Code(s): Z86.73 - Personal history of transient ischemic attack (TIA), and cerebral infarction without residual deficits Status: Chronic (9) Chronic back pain greater than 3 months duration Code(s): M54.9 - Dorsalgia, unspecified; G89.29 - Other chronic pain Status: Chronic (10) Constipation Code(s): K59.00 - Constipation, unspecified Status: Chronic (11) Nutrition, metabolism, and development symptoms Code(s): R63.8 - Other symptoms and signs concerning food and fluid intake Status: Acute (12) DVT prophylaxis Status: Acute <Agustin Land Keyshawn - 08/16/18 11:42> (1) Sepsis Code(s): A41.9 - Sepsis, unspecified organism Status: Inactive (2) Pneumonia Code(s): J18.9 - Pneumonia, unspecified organism Status: Inactive (3) Increased oxygen demand Code(s): R68.89 - Other general symptoms and signs Status: Acute (4) Hemoptysis Code(s): R04.2 - Hemoptysis Status: Acute (5) Hypertension Code(s): I10 - Essential (primary) hypertension Status: Acute (6) Influenza A Code(s): J10.1 - Influenza due to other identified influenza virus with other respiratory manifestations Status: Acute (7) Altered mental status Code(s): R41.82 - Altered mental status, unspecified Status: Resolved (8) Status post cerebrovascular accident Code(s): Z86.73 - Personal history of transient ischemic attack (TIA), and cerebral infarction without residual deficits Status: Chronic (9) Chronic back pain greater than 3 months duration Code(s): M54.9 - Dorsalgia, unspecified; G89.29 - Other chronic pain Status: Chronic (10) Constipation Code(s): K59.00 - Constipation, unspecified Status: Chronic (11) Nutrition, metabolism, and development symptoms Code(s): R63.8 - Other symptoms and signs concerning food and fluid intake Status: Acute (12) DVT prophylaxis Status: Acute <Ary Krause - 08/16/18 10:43> - Assessment and Plan Sepsis likely secondary to pneumonia Met sepsis criteria for tachycardia of up to 150s and fever up to 102.3 F, resolved with 1L NS and Tylenol. -Chest x-ray showed Bibasilar densities greater left lower lobe could be atelectasis or infiltrates. -EKG in ED showed sinus tachycardia of 150. Ordered repeat EKG which showed normal sinus rhythm rate of 70. -Urinalysis: Small occult blood, no signs of infection. No culture indicated -Urine Legionella ag and pneumococcal ag negative. -Repeat CBC and CMP within normal limits -Blood cultures pending -Sputum cultures ordered -Given 1L NS in the ED -Given Zosyn 3.375 g IV and Vancomycin 1g IV in the ED -Continue Zosyn 3.375g IV q8h and Vancomycin 1.25 g IV q12h for HAP, started on 08/13. -Transition to PO antibiotics today, Doxycycline 100 mg twice daily for 4 more days, for a total of 7 days of antibiotic coverage -Incentive spirometer, acapella/PEP/chest physiotherapy ordered -CM consulted for discharge planning and return to skilled nursing Increased oxygen demand, resolved Placed on 2L NC overnight on 08/14 for oxygen saturation 88-92%. O2 sat 96% on RA on evaluation yesterday morning. Patient has had O2 sat between 95-97% on room air for the past 24 hours. -Titrate O2 as needed -IVF stopped -Continue IS/acapella/chest physiotherapy Hemoptysis, resolved Blood tinged sputum noted by nursing staff this morning. Airway trauma due to increased cough vs. mass vs. PE -CT chest with contrast showed left perihilar and LLL PNA, small bilateral pleural effusions with compressive atelectasis. Hypertension, resolving -BP up to 180s/80s yesterday. BP 140s/60s this morning. -Hydralazine 25 mg PO PRN every 8 hrs as needed for SBP>160, DBP>100 -IVF stopped Influenza A positive -Tamiflu started on 08/13 -On droplet precautions Altered mental status, resolving Oriented to self. Patient's sister states that he is at or near baseline today. Trouble with word finding following CVA. -CT head showed remote left parietal infarct c/w prior CVA, negative for acute abnormalities S/p CVA 1 year ago, with residual trouble with word finding and weakness of right arm -Continue home ASA 81 mg daily -PT/OT ordered due to deconditioned state -Speech therapy ordered for dysarthria and cognition evaluation. Hx of chronic back pain and BKA s/p fall -PDMP reviewed. Receiving equivalent of Oxycodone 15mg PO q6 hr. Currently receiving in 3-[address] Zelaya. Last dose received last night. -Continue home dose of Oxycodone 15mg PO q6hr Hx of constipation -Continue home Miralax daily FEN -Fluids: Patient tolerating PO liquids. -Electrolytes: No significant electrolyte abnormalities, will continue to monitor and replete as needed. -Diet: Regular diet DVT prophylaxis -SCD and compression hose on LLE Patient stable for discharge back to SNF with p.o. antibiotics today. dw Dr. Egan and Dr. Land <Rekhaalexandra BhavinAry Patricia - 08/16/18 10:41> - Attending Attestation The exam, history, and the medical decision-making described in the above note were completed with the assistance of the resident physician. I reviewed and agree with the findings presented. I attest that I had a [id number] encounter with the patient on the same day, and personally performed and documented my assessment and findings in the medical record. feels great today, still some crackles but no worsening. suspect superimposed bacterial pnuemonia on flu and resulting hemoptysis, CT chest showing only pneumonia off o2, sepsis resolved, blood cx negative X 3 days. Will send home with doxy PO to cover MRSA as he is skilled nursing patient with recent influenza. otherwise same home meds and back to SNF today <Agustin Land - 08/16/18 11:42> <Ary Krause - Last Filed: 08/16/18 10:43> (1) Sepsis Qualifiers: Sepsis type: sepsis due to unspecified organism Qualified Code(s): A41.9 - Sepsis, unspecified organism (2) Pneumonia Qualifiers: Pneumonia type: due to unspecified organism Laterality: bilateral Lung location: lower lobe of lung Qualified Code(s): J18.1 - Lobar pneumonia, unspecified organism <Agustin Land - Last Filed: 08/16/18 11:42> (1) Sepsis Qualifiers: Sepsis type: sepsis due to unspecified organism Qualified Code(s): A41.9 - Sepsis, unspecified organism (2) Pneumonia Qualifiers: Pneumonia type: due to unspecified organism Laterality: bilateral Lung location: lower lobe of lung Qualified Code(s): J18.1 - Lobar pneumonia, unspecified organism <Ary Krause - Last Filed: 08/16/18 10:43> (1) Sepsis Qualifiers: Sepsis type: sepsis due to unspecified organism Qualified Code(s): A41.9 - Sepsis, unspecified organism (2) Pneumonia Qualifiers: Pneumonia type: due to unspecified organism Laterality: bilateral Lung location: lower lobe of lung Qualified Code(s): J18.1 - Lobar pneumonia, unspecified organism <Agustin Land - Last Filed: 08/16/18 11:42> (1) Sepsis Qualifiers: Sepsis type: sepsis due to unspecified organism Qualified Code(s): A41.9 - Sepsis, unspecified organism (2) Pneumonia Qualifiers: Pneumonia type: due to unspecified organism Laterality: bilateral Lung location: lower lobe of lung Qualified Code(s): J18.1 - Lobar pneumonia, unspecified organism
[2018-08-16] MEDS: Polyethylene Glycol 3350 17 GM Packet PO SCH (09:41)
[2018-08-16] MEDS: Senna/Docusate Sodium 8.6/50 MG Tablet PO SCH ×2 (09:42→21:39)
[2018-08-16] MEDS: Meloxicam 15 MG Tablet PO SCH (09:42)
[2018-08-16] MEDS: Oseltamivir Phosphate 75 MG Capsule PO SCH ×2 (09:42→21:39)
[2018-08-16 12:05] LABS: Baso % (Auto) 0.4 % (0.0-2.0); Eos # (Auto) 0.2 th/mm3 (0.0-0.4); Eos % (Auto) 2.8 % (0.0-4.0); Hematocrit 36.9 % (39.0-51.0); Hemoglobin 12.8 gm/dL (13.0-17.0); Lymph % (Auto) 51.4 % (9.0-44.0); Mean Corpuscular HGB Conc 34.6 % (32.0-36.0); Mean Corpuscular Volume 86.7 fL (80.0-100.0); Mean Platelet Volume 7.7 fL (7.0-11.0); Mono # (Auto) 0.7 th/mm3 (0.0-0.9); Mono % (Auto) 11.8 % (0.0-8.0); Neut % (Auto) 33.6 % (16.0-70.0); Platelet Count 195 th/mm3 (150-450); Red Blood Count 4.25 mil/mm3 (4.50-5.90); Red Cell Distribution Width 13.5 % (11.6-17.2); White Blood Count 5.8 th/mm3 (4.0-11.0)
[2018-08-16] MEDS: Enoxaparin Inj 40 MG/0.4 ML Syringe SQ SCH (13:30)
[2018-08-16] MEDS ORDERED: Pharmacy Ordered Lab Info OTHER ONE (17:45)
[2018-08-16 20:53] LABS: Albumin 2.6 g/dL (3.4-5.0); Anion Gap 9 meq/L (5-15); Aspartate Aminotransferase 22 U/L (15-37); Blood Urea Nitrogen 11 mg/dL (7-18); Calcium 8.3 mg/dL (8.5-10.1); Carbon Dioxide 27.2 meq/L (21.0-32.0); Chloride 106 meq/L (98-107); Glomerular Filtration Rate Greater Than 89 mL/min (>89); Glucose,Random 123 mg/dL (74-106); Potassium 3.5 meq/L (3.5-5.1); Sodium 142 meq/L (136-145)
[2018-08-16 20:54] LABS: Alanine Aminotransferase 19 U/L (12-78)
[2018-08-16 20:57] LABS: Alkaline Phosphatase 55 U/L (45-117); Total Protein 7.7 g/dL (6.4-8.2)
[2018-08-16 21:23] VITALS: RESP 18
[2018-08-16] MEDS: Mirtazapine 15 MG Tablet PO SCH (21:39)
--- NOTE | 2018-08-17 08:16 | P.PNFP ---
Subjective Interval history: Patient seen and examined this morning. Feeling well and has no complaints at present. Tolerated oral antibiotic well yesterday. Denies headache, nausea, vomiting, chest pain, leg pain or swelling. Spoke to CM, who state that patient's SNF was made aware of his discharge and are arranging transport for return to [facility] today. <Ary Krause Patricia - 08/17/18 08:52> Results - Labs Result diagrams: 08/16/18 10:36 08/16/18 20:14 <Agustin Land - 08/17/18 10:36> Abnormal lab results 08/16/18 08/16/18 Range/Units 10:36 20:14 RBC 4.25 L (4.50-5.90) mil/mm3 Hgb 12.8 L (13.0-17.0) gm/dL Hct 36.9 L (39.0-51.0) % Lymph % (Auto) 51.4 H (9.0-44.0) % Mcdowell % (Auto) 11.8 H (0.0-8.0) % Creatinine 0.55 L (0.60-1.30) mg/dL Random Glucose 123 H (74-106) mg/dL Calcium 8.3 L (8.5-10.1) mg/dL Albumin 2.6 L (3.4-5.0) g/dL Short CBC 08/16/18 Range/Units 10:36 WBC 5.8 (4.0-11.0) th/mm3 Hgb 12.8 L (13.0-17.0) gm/dL Hct 36.9 L (39.0-51.0) % Plt Count 195 D (150-450) th/mm3 [facility] 08/16/18 20:14 Sodium 142 Potassium 3.5 Chloride 106 Carbon Dioxide 27.2 BUN 11 Creatinine 0.55 L Calcium 8.3 L Liver Function 08/16/18 Range/Units 20:14 Total Bilirubin 0.4 (0.2-1.0) mg/dL AST 22 (15-37) U/L ALT 19 (12-78) U/L Alkaline Phosphatase 55 (45-117) U/L Albumin 2.6 L (3.4-5.0) g/dL <Agustin Land - 08/17/18 10:36> Abnormal lab results 08/16/18 08/16/18 Range/Units 10:36 20:14 RBC 4.25 L (4.50-5.90) mil/mm3 Hgb 12.8 L (13.0-17.0) gm/dL Hct 36.9 L (39.0-51.0) % Lymph % (Auto) 51.4 H (9.0-44.0) % Mcdowell % (Auto) 11.8 H (0.0-8.0) % Creatinine 0.55 L (0.60-1.30) mg/dL Random Glucose 123 H (74-106) mg/dL Calcium 8.3 L (8.5-10.1) mg/dL Albumin 2.6 L (3.4-5.0) g/dL Short CBC 08/16/18 Range/Units 10:36 WBC 5.8 (4.0-11.0) th/mm3 Hgb 12.8 L (13.0-17.0) gm/dL Hct 36.9 L (39.0-51.0) % Plt Count 195 D (150-450) th/mm3 BMP 08/16/18 20:14 Sodium 142 Potassium 3.5 Chloride 106 Carbon Dioxide 27.2 BUN 11 Creatinine 0.55 L Calcium 8.3 L Liver Function 08/16/18 Range/Units 20:14 Total Bilirubin 0.4 (0.2-1.0) mg/dL AST 22 (15-37) U/L ALT 19 (12-78) U/L Alkaline Phosphatase 55 (45-117) U/L Albumin 2.6 L (3.4-5.0) g/dL <Ary Krause B - 08/17/18 08:16> Physical Exam Vital signs: Vital Signs 08/16/18 11:35 08/16/18 16:00 08/16/18 20:20 Temperature 97.4 F L 97.2 F L 97.7 F Pulse Rate 62 67 59 L Respiratory Rate 20 20 18 Blood Pressure 166/72 H 165/74 H 147/73 H Pulse Oximetry 96 100 96 08/16/18 23:35 08/17/18 04:15 08/17/18 08:50 Temperature 97.6 F 98.9 F 97.9 F Pulse Rate 58 L 69 62 Respiratory Rate 18 18 18 Blood Pressure 134/66 150/84 H 163/74 H Pulse Oximetry 98 95 98 Intake & Output 08/16/18 08/17/18 08/17/18 18:59 06:59 18:59 Output Total 850 / 850 Balance -850 / -850 Weight 59.5 kg Output: Urine 850 / 850 Other: Date of Last Bowel Movement 08/15/18 08/16/18 <Agustin Land K - 08/17/18 10:36> Vital Signs 08/16/18 09:07 08/16/18 11:35 08/16/18 16:00 Temperature 97.4 F L 97.2 F L Pulse Rate 62 67 Respiratory Rate 20 20 Blood Pressure 166/72 H 165/74 H Pulse Oximetry 98 96 100 08/16/18 20:20 08/16/18 23:35 08/17/18 04:15 Temperature 97.7 F 97.6 F 98.9 F Pulse Rate 59 L 58 L 69 Respiratory Rate 18 18 18 Blood Pressure 147/73 H 134/66 150/84 H Pulse Oximetry 96 98 95 Intake & Output 08/16/18 08/17/18 08/17/18 18:59 06:59 18:59 Output Total 850 / 850 Balance -850 / -850 Weight 59.5 kg Output: Urine 850 / 850 Other: Date of Last Bowel Movement 08/15/18 08/16/18 <Ary Krause B - 08/17/18 08:16> Narrative: GENERAL: 62-year-old thin frail male laying down comfortably in bed. In no acute distress. SKIN: Warm and dry. HEAD: Atraumatic. Normocephalic. EYES: EMOI. No scleral icterus. No injection or drainage. ENT: No nasal bleeding or discharge. Mucous membranes pink and moist. Airway patent. CARDIOVASCULAR: Regular rate and rhythm, except for mild tachycardia. No murmur. RESPIRATORY: No accessory muscle use. Equal breath sounds bilaterally. Occasional, minimal coarse crackles in left lower lung field, improved from yesterday. MUSCULOSKELETAL: Extremities without clubbing, cyanosis, or edema. Well-healed RLE BKA. No calf tenderness on the left. Well-healed surgical scar extending from T7 down to L5 on back along the midline. NEUROLOGICAL: Awake and alert. Oriented to self, year and state. No obvious cranial nerve deficits. Moving all extremities spontaneously. Trouble with word finding. Follows commands. PSYCHIATRIC: Appropriate mood and affect. <Ary Krause - 08/17/18 08:52> Assessment and Plan - Assessment (1) Increased oxygen demand Code(s): R68.89 - Other general symptoms and signs Status: Acute (2) Hemoptysis Code(s): R04.2 - Hemoptysis Status: Acute (3) Hypertension Code(s): I10 - Essential (primary) hypertension Status: Acute (4) Influenza A Code(s): J10.1 - Influenza due to other identified influenza virus with other respiratory manifestations Status: Acute (5) Altered mental status Code(s): R41.82 - Altered mental status, unspecified Status: Resolved (6) Status post cerebrovascular accident Code(s): Z86.73 - Personal history of transient ischemic attack (TIA), and cerebral infarction without residual deficits Status: Chronic (7) Chronic back pain greater than 3 months duration Code(s): M54.9 - Dorsalgia, unspecified; G89.29 - Other chronic pain Status: Chronic (8) Constipation Code(s): K59.00 - Constipation, unspecified Status: Chronic (9) Nutrition, metabolism, and development symptoms Code(s): R63.8 - Other symptoms and signs concerning food and fluid intake Status: Acute (10) DVT prophylaxis Status: Acute <Agustin Land - 08/17/18 10:36> (1) Increased oxygen demand Code(s): R68.89 - Other general symptoms and signs Status: Acute (2) Hemoptysis Code(s): R04.2 - Hemoptysis Status: Acute (3) Hypertension Code(s): I10 - Essential (primary) hypertension Status: Acute (4) Influenza A Code(s): J10.1 - Influenza due to other identified influenza virus with other respiratory manifestations Status: Acute (5) Altered mental status Code(s): R41.82 - Altered mental status, unspecified Status: Resolved (6) Status post cerebrovascular accident Code(s): Z86.73 - Personal history of transient ischemic attack (TIA), and cerebral infarction without residual deficits Status: Chronic (7) Chronic back pain greater than 3 months duration Code(s): M54.9 - Dorsalgia, unspecified; G89.29 - Other chronic pain Status: Chronic (8) Constipation Code(s): K59.00 - Constipation, unspecified Status: Chronic (9) Nutrition, metabolism, and development symptoms Code(s): R63.8 - Other symptoms and signs concerning food and fluid intake Status: Acute (10) DVT prophylaxis Status: Acute <Ary Krause - 08/17/18 09:37> - Assessment and Plan Sepsis likely secondary to pneumonia Met sepsis criteria for tachycardia of up to 150s and fever up to 102.3 F, resolved with 1L NS and Tylenol. -Chest x-ray showed Bibasilar densities greater left lower lobe could be atelectasis or infiltrates. -EKG in ED showed sinus tachycardia of 150. Ordered repeat EKG which showed normal sinus rhythm rate of 70. -Urinalysis: Small occult blood, no signs of infection. No culture indicated -Urine Legionella ag and pneumococcal ag negative. -Repeat CBC and CMP within normal limits -Blood cultures pending -Sputum cultures ordered -Given 1L NS in the ED -Given Zosyn 3.375 g IV and Vancomycin 1g IV in the ED -Continue Zosyn 3.375g IV q8h and Vancomycin 1.25 g IV q12h for HAP, started on 08/13. -Transition to PO antibiotics today, Doxycycline 100 mg twice daily for 4 more days, for a total of 7 days of antibiotic coverage -Incentive spirometer, acapella/PEP/chest physiotherapy ordered -CM consulted for discharge planning and return to shelter Influenza A positive -Tamiflu started on 08/13 -On droplet precautions Increased oxygen demand, resolved Placed on 2L NC overnight on 08/14 for oxygen saturation 88-92%. O2 sat 96% on RA on evaluation yesterday morning. Patient has had O2 sat between 95-97% on room air for the past 24 hours. -Titrate O2 as needed -IVF stopped -Continue IS/acapella/chest physiotherapy Hemoptysis, resolved Blood tinged sputum noted by nursing staff this morning. Airway trauma due to increased cough vs. mass vs. PE -CT chest with contrast showed left perihilar and LLL PNA, small bilateral pleural effusions with compressive atelectasis. Hypertension, resolving -BP up to 180s/80s yesterday. BP 140s/60s this morning. -Hydralazine 25 mg PO PRN every 8 hrs as needed for SBP>160, DBP>100 -IVF stopped Altered mental status, resolving Oriented to self and year. Trouble with word finding following CVA. -CT head showed remote left parietal infarct c/w prior CVA, negative for acute abnormalities S/p CVA 1 year ago, with residual trouble with word finding and weakness of right arm -Continue home ASA 81 mg daily -PT/OT ordered due to deconditioned state -Speech therapy ordered for dysarthria and cognition evaluation. Hx of chronic back pain and BKA s/p fall -PDMP reviewed. Receiving equivalent of Oxycodone 15mg PO q6 hr. Currently receiving in 3-[address] Zelaya. Last dose received last night. -Continue home dose of Oxycodone 15mg PO q6hr Hx of constipation -Continue home Miralax daily FEN -Fluids: Patient tolerating PO liquids. -Electrolytes: No significant electrolyte abnormalities, will continue to monitor and replete as needed. -Diet: Regular diet DVT prophylaxis -SCD and compression hose on LLE Patient stable for discharge back to SNF today. dw Dr. Egan and Dr. Land <Ary Krause - 08/17/18 08:52> - Attending Attestation The exam, history, and the medical decision-making described in the above note were completed with the assistance of the resident physician. I reviewed and agree with the findings presented. I attest that I had a [id number] encounter with the patient on the same day, and personally performed and documented my assessment and findings in the medical record. tolerating oral abx well and still maintaining good saturations, still with crackles but overall feeling well and ready to go back to SNF on PO doxy and other home meds d/w CM today to ensure that he goes BPs are higher, but in light of hypotension on admission, will leave for outpatient management. dont seem critically high especially given age and co morbidities d/w resident team <Agustin Land - 08/17/18 10:36>
[2018-08-17] MEDS: Oseltamivir Phosphate 75 MG Capsule PO SCH ×2 (10:19→13:44)
[2018-08-17] MEDS: Meloxicam 15 MG Tablet PO SCH (10:19)
[2018-08-17] MEDS: Senna/Docusate Sodium 8.6/50 MG Tablet PO SCH (10:19)
[2018-08-17] MEDS: Polyethylene Glycol 3350 17 GM Packet PO SCH (10:20)
[2018-08-17 12:59] VITALS: BP 169/73; PULSE 63; TEMP 97.4; O2SAT 99
== END 2018-08-17 16:04 | DRG 871 ==
LOC: NEPC 06:43 → NEDA 08:56 → N05 10:39
PROVIDERS: ADMIT Family Medicine; ATTEND Family Medicine
CPT/HCPCS: 70450; 71010; 71045; 71260; 80053; 80202; 81001; 82550; 82565; 83605; 85025; 85610; 85730; 87040; 87070; 87205; 87275; 87276; 87449; 87804; 90761; 90774; 90784; 92610; 93005; 94150; 94667; 96125; 96361; 96374; 97162; 97167; 99285; C8952; G0195; J1650; J2543; J3370; J7030; J7050; Q9967